=== PATIENT | male | born 1950 | race African-American/Black ===

== ENCOUNTER 2018-11-09 06:47 | Emergency (ER) | payer OTHER, BC ==
--- NOTE | 2018-11-09 07:09 | PDOC ---
History of Present Illness - General Stated Complaint: ABDOMINAL PAIN Time Seen by Provider: 11/09/18 07:07 - History of Present Illness Initial Comments: 11/09/18 07:12 Mr. Roman is a 68 yo male w/ pmh of HTN, prior CVA, s/p appendectomy and cholecystectomy who presents for evaluation of 2-3 day history of intense abdominal pain. Patient reports he had hiccupping several days ago which was relieved by nexium OTC however he stopped taking nexium after his hiccups resolved. He cannot localize his pain to anywhere specific and does not endorse any relation to food, activity, bathroom habits, etc. Denies other symptoms at this time. The patient denies chest pain, shortness of breath, headache and dizziness. Denies fever, chills, nausea, vomit, diarrhea and constipation. Denies dysuria, frequency, urgency and hematuria. Past History - Past Medical History Allergies/Adverse Reactions: Allergies Allergy/AdvReac Type Severity Reaction Status Date / Time No Known Allergies Allergy Verified 11/09/18 07:17 Home Medications: Ambulatory Orders Amlodipine Besylate [Norvasc -] 10 mg PO DAILY 11/09/18 Diclofenac Potassium 50 mg PO ASDIR 11/09/18 Fluticasone Furoate [Children's Flonase Sensimist] 5.9 ml NS ASDIR 11/09/18 Loratadine 10 mg PO ASDIR 11/09/18 Omeprazole 20 mg PO ASDIR 11/09/18 Oxybutynin Chloride [Ditropan -] 5 mg PO DAILY 11/09/18 Selenium 25 mcg PO ASDIR 11/09/18 Tamsulosin HCl [Flomax] 0.4 mg PO DAILY #7 cap.er.24h 11/09/18 Tramadol HCl 50 mg PO BID #4 tablet MDD 2 11/09/18 CVA: Yes HTN: Yes - Suicide/Smoking/Psychosocial Hx Smoking History: Current every day smoker Number of Cigarettes Smoked Daily: 20 'Breaking Loose' booklet given: 07/13/15 Hx Alcohol Use: No Drug/Substance Use Hx: No Review of Systems - Review of Systems Comments:: 11/09/18 07:14 GENERAL/CONSTITUTIONAL: No fever or chills. No weakness. HEAD, EYES, EARS, NOSE AND THROAT: No change in vision. No ear pain or discharge. No sore throat. CARDIOVASCULAR: No chest pain or shortness of breath RESPIRATORY: No cough, wheezing, or hemoptysis. GASTROINTESTINAL: +Abdominal pain as described. No nausea, vomiting, diarrhea or constipation. GENITOURINARY: No dysuria, frequency, or change in urination. MUSCULOSKELETAL: No joint or muscle swelling or pain. No neck or back pain. SKIN: No rash NEUROLOGIC: No headache, vertigo, loss of consciousness, or change in strength/ sensation. ENDOCRINE: No increased thirst. No abnormal weight change HEMATOLOGIC/LYMPHATIC: No anemia, easy bleeding, or history of blood clots. ALLERGIC/IMMUNOLOGIC: No hives or skin allergy. *Physical Exam - Physical Exam Comments: 11/09/18 07:14 GENERAL: Awake, alert, and fully oriented, in no acute distress HEAD: No signs of trauma, normocephalic, atraumatic EYES: PERRLA, EOMI, sclera anicteric, conjunctiva clear ENT: Auricles normal inspection, hearing grossly normal, nares patent, oropharynx clear without exudates. Moist mucosa NECK: Normal ROM, supple, no lymphadenopathy, JVD, or masses LUNGS: No distress, speaks full sentences, clear to auscultation bilaterally HEART: Regular rate and rhythm, normal S1 and S2, no murmurs, rubs or gallops, peripheral pulses normal and equal bilaterally. ABDOMEN: +Diffuse abdominal TTP. Patient guarding. Normoactive bowel sounds. No rebound. No masses. EXTREMITIES: Normal inspection, Normal range of motion, no edema. No clubbing or cyanosis. NEUROLOGICAL: Cranial nerves II through XII grossly intact. Normal speech, normal gait, no focal sensorimotor deficits SKIN: Warm, Dry, normal turgor, no rashes or lesions noted. ED Treatment Course - LABORATORY CBC & Chemistry Diagram: 11/09/18 08:10 11/09/18 08:10 Medical Decision Making - Medical Decision Making 11/09/18 10:12 Mr. Roman is a 68 yo male w/ pmh as described who presents for evaluation of diffuse abdominal pain. Patient evaluated using labs as well as CT abdomen/ pelvis using IV/Oral contrast. Patient noted to have partially obstructing mid right ureteral calculus with mild hydronephrosis, also heterogeneous pancreatic masses suspicious for malignancy. 11/09/18 11:[address] with patient - pancreatic mass known and followed by his physician at the [facility]. Patient pain improved after toradol. Discharging patient for outpatient treatment of kidney stone and urology follow-up. Flomax Rx sent to patient's pharmacy. Patient will contact urologist through [facility] after discharge. Laboratory Results - last 24 hr 11/09/18 11/09/18 11/09/18 08:10 08:10 08:10 WBC 12.6 H RBC 5.67 H Hgb 15.4 Hct 48.6 MCV 85.7 MCH 27.2 MCHC 31.7 L RDW 17.3 H Plt Count 248 D MPV 8.3 Absolute Neuts (auto) 9.8 H Neutrophils % 78.2 D Lymphocytes % 11.7 D Monocytes % 6.7 Eosinophils % 2.5 Basophils % 0.9 Nucleated RBC % 0 Platelet Comment No clumping noted Sodium 135 L Potassium 3.7 Chloride 104 Carbon Dioxide 28 Anion Gap 4 L BUN 12 Creatinine 1.1 Creat Clearance w eGFR > 60 Random Glucose 125 H Lactic Acid 1.3 Calcium 9.3 Total Bilirubin 0.3 AST 19 ALT 19 Alkaline Phosphatase 126 H Total Protein 8.6 H Albumin 4.4 Lipase 74 Urine Color Urine Appearance Urine pH Ur Specific [place] Urine Protein Urine Glucose (UA) Urine Ketones Urine Blood Urine Nitrite Urine Bilirubin Urine Urobilinogen Ur Leukocyte Esterase Urine WBC (Auto) Urine RBC (Auto) 11/09/18 10:34 WBC RBC Hgb Hct MCV MCH MCHC RDW Plt Count MPV Absolute Neuts (auto) Neutrophils % Lymphocytes % Monocytes % Eosinophils % Basophils % Nucleated RBC % Platelet Comment Sodium Potassium Chloride Carbon Dioxide Anion Gap BUN Creatinine Creat Clearance w eGFR Random Glucose Lactic Acid Calcium Total Bilirubin AST ALT Alkaline Phosphatase Total Protein Albumin Lipase Urine Color Colorless Urine Appearance Clear Urine pH 7.0 D Ur Specific [place] 1.028 Urine Protein Negative Urine Glucose (UA) Negative Urine Ketones Negative Urine Blood 1+ H Urine Nitrite Negative Urine Bilirubin Negative Urine Urobilinogen Negative Ur Leukocyte Esterase Negative Urine WBC (Auto) 2 Urine RBC (Auto) 2 *DC/Admit/Observation/Transfer Diagnosis at time of Disposition: Kidney stone - Discharge Dispostion Disposition: HOME Condition at time of disposition: Fair - Prescriptions Prescriptions: Tamsulosin HCl [Flomax] 0.4 mg PO DAILY #7 cap.er.24h - Referrals Referrals: Radha Wise MD [Primary Care Provider] - - Patient Instructions Printed Discharge Instructions: DI for Kidney Stones Additional Instructions: You were evaluated today in the emergency room for your pain and found to have a kidney stone. A proscription was sent to your pharmacy. Please take all medications as proscribed. No other concerning findings were found at this time. Please follow-up with urology as discussed. Return to ER if any fever, chills, increase in pain, or other concerning symptoms. - Post Discharge Activity
[2018-11-09 07:17] VITALS: BMI 24.0
[2018-11-09] MEDS ORDERED: SODIUM CHLORIDE 1,000 ML IV STA ×2 (07:30→10:21)
--- NOTE | 2018-11-09 07:30 | PDOC ---
Attending Attestation - HPI HPI: 11/09/18 09:23 The patient is a 68 year old male, with a significant PMH of hypertension, prior CVA, who presents to the emergency department with 2-3 days of generalized abdominal pain. The patient states he is unable to localize the abdominal pain and denies any exacerbating or remitting factors. The patient also notes he has had hiccups for several days for which he took OTC Nexium with relief of his hiccups. The patient denies chest pain, shortness of breath, headache and dizziness. Denies fever, chills, nausea, vomit, diarrhea and constipation. Denies dysuria, frequency, urgency and hematuria. Allergies: NKA Past surgical history: appendectomy and cholecystectomy Social history: No reported PCP: Dr Radha Wise Documentation prepared by Ed Carlos, acting as medical claims analyst for Narinder Azevedo MD. - Physicial Exam PE: 11/09/18 11:12 Vitals: Triage Vital signs reviewed General Appearance: no acute distress, well nourished well developed, Neck: Supple;No Nuchal rigidity Chest Wall: Nontender Cardiac: Regular rate and rhythm, no murmurs, no rubs, no gallops, Lungs: Clear to auscultation bilateral, good air movement bilaterally, Abdomen: (+) Diffuse abdominal pain. No rebound or guarding. Soft, nondistended , normal bowel sounds. Rectal: Exam deferred Extremities: Full range of motion to all extremities, no cyanosis, clubbing, or edema Skin: Warm and dry, no rashes or lesions, no petechiae Psych: normal mood, normal affect <Ed Carlos - Last Filed: 11/09/18 11:12> - Resident Resident Name: David Ricci - ED Attending Attestation I have performed the following: I have examined & evaluated the patient, The case was reviewed & discussed with the resident, I agree w/resident's findings & plan, Exceptions are as noted - Medical Decision Making 11/09/18 14:30 CT with evidence of right-sided kidney stone Status post Toradol patient feels much better Urinalysis clean labs notable for slightly elevated leukocytosis below suspicion for infected stone at this time Patient has urologist we'll discharge her on Aleve tramadol Flomax with urology follow-up Findings, need for follow-up and strict return instructions discussed with patient. <Narinder Azevedo - Last Filed: 11/09/18 14:30>
[2018-11-09] MEDS ORDERED: FAMOTIDINE 20 MG/50 ML IVPB 20 MG/50 ML MG IVPB ONE ×2 (07:31→07:55)
[2018-11-09] MEDS ORDERED: MAG HYDROX/AL HYDROX/SIMETH 30 ML UNIT-DOSE CUP PO ONE (07:31)
[2018-11-09] MEDS ORDERED: ACETAMINOPHEN 1000 MG/100 ML VIAL (NON FORMULARY) IVPB ONE (07:32)
[2018-11-09] MEDS ORDERED: ACETAMINOPHEN INJECTION 100 ML IVPB ONE (07:54)
[2018-11-09] MEDS ORDERED: MAG HYDROX/AL HYDROX/SIMETH 30 ML UNIT-DOSE CUP ONE ×2 (07:54→07:55)
[2018-11-09 08:40] LABS: ALBUMIN 4.4 g/dl (3.4-5.0); ALK PHOS 126 U/L (45-117); ANION GAP 4 MMOL/L (8-16); BILIRUBIN,TOTAL 0.3 mg/dL (0.2-1); BLOOD UREA NITROGEN 12 mg/dL (7-18); CALCIUM 9.3 mg/dL (8.5-10.1); CHLORIDE 104 mmol/L (98-107); CO2 28 mmol/L (21-32); CREATININE 1.1 mg/dL (0.55-1.3); GLUCOSE,RANDOM 125 mg/dL (74-106); POTASSIUM 3.7 mmol/L (3.5-5.1); SGOT/AST 19 U/L (15-37); SGPT/ALT 19 U/L (13-61); SODIUM 135 mmol/L (136-145); TOT PROT 8.6 g/dl (6.4-8.2)
[2018-11-09 08:49] LABS: BASO % 0.9 % (0-2.0); EOS % 2.5 % (0-4.5); HEMATOCRIT 48.6 % (35.4-49); HEMOGLOBIN 15.4 GM/dL (11.7-16.9); LYMPH % 11.7 % (8-40); MCH 27.2 pg (25.7-33.7); MCHC 31.7 g/dl (32.0-35.9); MEAN CELL VOLUME 85.7 fl (80-96); MEAN PLT VOLUME 8.3 fl (7.5-11.1); MONO % 6.7 % (3.8-10.2); NEUT % 78.2 % (42.8-82.8); PLATELET COUNT 248 K/MM3 (134-434); RBC 5.67 M/mm3 (4.00-5.60); RDW 17.3 % (11.9-15.9); WHITE BLOOD COUNT 12.6 K/mm3 (4.0-10.0)
[2018-11-09 09:47] LABS: LIPASE 74 U/L (73-393)
[2018-11-09] MEDS ORDERED: ONDANSETRON 4 MG/2 ML VIAL IVPUSH ONE (09:50)
[2018-11-09] MEDS ORDERED: morphine CARPU-JECT 4 MG/1 ML DISP.SYRIN IVPUSH ONE (09:50)
[2018-11-09] MEDS ORDERED: ONDANSETRON 4 MG/2 ML VIAL ONE (09:54)
[2018-11-09] MEDS ORDERED: morphine SULFATE 4 MG/ML VIAL ONE (09:54)
[2018-11-09] MEDS ORDERED: KETOROLAC TROMETHAMINE 30 MG/1 ML VIAL IVPUSH ONE (10:22)
[2018-11-09] MEDS ORDERED: KETOROLAC TROMETHAMINE 30 MG/1 ML VIAL ONE (10:32)
[2018-11-09 11:22] LABS: URINE APPEARANCE CLEAR; URINE BILIRUBIN NEGATIVE (<2.0 mg/dL); URINE COLOR COLORLESS; URINE GLUCOSE (UA) NEGATIVE (NEGATIVE); URINE KETONE NEGATIVE (NEGATIVE); URINE LEUK ESTERASE NEGATIVE (NEGATIVE); URINE NITRITE NEGATIVE (NEGATIVE); URINE PROTEIN NEGATIVE (NEGATIVE); URINE UROBILINOGEN NEGATIVE mg/dL (0.2-1.0)
[2018-11-09 12:17] VITALS: BP 158/85; PULSE 78; TEMP 97.9
== END 2018-11-09 12:17 | disposition home or self-care (01) ==
LOC: JER 06:47
PROC: 3E0337Z Introduction of Electrolytic and Water Balance Substance into Peripheral Vein, Percutaneous Approach (ICD-10-PCS; principal; 2018-11-09)
PROC: 3E033GC Introduction of Other Therapeutic Substance into Peripheral Vein, Percutaneous Approach (ICD-10-PCS; 2018-11-09)
PROC: 3E033NZ Introduction of Analgesics, Hypnotics, Sedatives into Peripheral Vein, Percutaneous Approach (ICD-10-PCS; 2018-11-09)
PROC: 3E033NZ Introduction of Analgesics, Hypnotics, Sedatives into Peripheral Vein, Percutaneous Approach (ICD-10-PCS; 2018-11-09)
PROC: 3E033GC Introduction of Other Therapeutic Substance into Peripheral Vein, Percutaneous Approach (ICD-10-PCS; 2018-11-09)
PROC: 3E0333Z Introduction of Anti-inflammatory into Peripheral Vein, Percutaneous Approach (ICD-10-PCS; 2018-11-09)
DX: N20.0 Calculus of kidney (principal); I10 Essential (primary) hypertension; Z86.73 Personal history of transient ischemic attack (TIA), and cerebral infarction without residual deficits
CPT/HCPCS: 36415; 74177-TC; 80053; 81003; 81015; 83605; 83690; 85025; 87086; 99282-25; J0131; J7030; Q9967

== ENCOUNTER 2018-11-11 15:29 | Inpatient (IN) | payer OTHER, BC ==
--- NOTE | 2018-11-11 15:55 | PDOC ---
History of Present Illness - General Chief Complaint: Altered Mental Status Stated Complaint: KIDNEY PAIN Time Seen by Provider: 11/11/18 15:54 History Source: Patient - History of Present Illness Initial Comments: 11/11/18 17:03 The patient is 68 year old male with a PMH of HTN, remote h/o CVA (20+ years previous w/no residual deficits), pancreatic mass (s/p biopsy @ [facility], no known malignancy) presents to our ED c/o fever, abdominal pain. Patient's @ bedside assists in history. Patient states he was evaluated yesterday in our ED for abdominal pain and CT showed kidney stone. Was discharged home with supportive care. Pain worsened overnight and today. Patient's noticed he felt warm to touch and decided to come to the ED for further evaluation. Patient states the pain is diffuse, R>L, 10/10, "sharp," radiates to his R flank. Minimal relief from Tramadol which was prescribed from ED evaluation yesterday. Is tolerating PO intake, however notes decreased appetite 2/2 to symptoms. Last BM was prior to presentation and was normal. Patient's notes that patient couldn't remember his birthdate @ triage and was confused @ home looking for his hat while it was on his head. At baseline patient is alert , oriented x3. 10 ROS was negative including no chest pain/shortness of breath/abdominal pain/ nausea/vomiting/diarrhea/constipation. NKDA Surgical: appendectomy, cholecystectomy Social: lifetime non-smoker PMD: [facility] Radha [facility] and [facility] As per EMR, patient was evaluated in our ED on 11/[address] w/IV contrast showed 5x7 mm R mid ureter calculus, partial obstruction, mild R sided hydronephrosis, heterogenous pancreatic mass w/duct dilatation. Cr stable @ 1.1 , UA showed 1+ blood c/w nephrolithiasis, no LE, normal WBC. Past History - Past Medical History Allergies/Adverse Reactions: Allergies Allergy/AdvReac Type Severity Reaction Status Date / Time No Known Allergies Allergy Verified 11/09/18 07:17 Home Medications: Ambulatory Orders Amlodipine Besylate [Norvasc -] 10 mg PO DAILY 11/09/18 Diclofenac Potassium 50 mg PO ASDIR 11/09/18 Fluticasone Furoate [Children's Flonase Sensimist] 5.9 ml NS ASDIR 11/09/18 Loratadine 10 mg PO ASDIR 11/09/18 Omeprazole 20 mg PO ASDIR 11/09/18 Oxybutynin Chloride [Ditropan -] 5 mg PO DAILY 11/09/18 Selenium 25 mcg PO ASDIR 11/09/18 Tamsulosin HCl [Flomax] 0.4 mg PO DAILY #7 cap.er.24h 11/09/18 Tramadol HCl 50 mg PO BID #4 tablet MDD 2 11/09/18 CVA: Yes COPD: No HTN: Yes - Immunization History Immunization Up to Date: Yes - Suicide/Smoking/Psychosocial Hx Smoking History: Current every day smoker Have you smoked in the past 12 months: No Number of Cigarettes Smoked Daily: 10 Information on smoking cessation initiated: No 'Breaking Loose' booklet given: 07/13/15 Hx Alcohol Use: No Drug/Substance Use Hx: No Review of Systems - Review of Systems Constitutional: Yes: Chills, Fever HEENTM: No: Recent change in vision Respiratory: No: Cough, Shortness of Breath Cardiac (ROS): No: Chest Pain, Lightheadedness, Palpitations, Syncope ABD/GI: Yes: Abdominal cramping. No: Constipated, Diarrhea, Nausea, Vomiting : No: Burning, Dysuria *Physical Exam - Vital Signs Last Vital Signs Temp Pulse Resp BP Pulse Ox 100.2 F H 147 H 20 144/95 98 11/11/18 15:47 11/11/18 15:47 11/11/18 15:47 11/11/18 15:47 11/11/18 15:47 - Physical Exam General Appearance: Yes: Nourished, Appropriately Dressed HEENT: positive: Normal Voice, Hearing Grossly Normal Neck: positive: Trachea midline, Supple Respiratory/Chest: positive: Lungs Clear, Normal Breath Sounds Cardiovascular: positive: S1, S2, Tachycardia Vascular Pulses: Dorsalis-Pedis (R): 2+, Doralis-Pedis (L): 2+ Gastrointestinal/Abdominal: positive: Soft, Other (Mild RUQ TTP, (+) bowel sounds, no peritoneal signs) Male Genitalia: positive: CVAT (R side) Extremity: positive: Normal Capillary Refill, Normal Inspection Integumentary: positive: Normal Color, Dry, Warm Neurologic: positive: Fully Oriented, Alert Moderate Sedation - Procedure Monitoring Vital Signs: Procedure Monitoring Vital Signs Temperature 100.2 F H 11/11/18 15:47 Pulse Rate 147 H 11/11/18 15:47 Respiratory Rate 20 11/11/18 15:47 Blood Pressure 144/95 11/11/18 15:47 O2 Sat by Pulse Oximetry (%) 98 11/11/18 15:47 ED Treatment Course - LABORATORY CBC & Chemistry Diagram: 11/12/18 09:30 11/12/18 09:30 Medical Decision Making - Medical Decision Making 11/11/18 17:08 68 year old male with abdominal pain, H/o 5x7 R sided obstructing stone yesterday. Febrile (105) and Tachycardic (140's) @ triage. Repeat VS @ bedside : Temp 104.2 (Rectal), HR 126, RR 21, SpO2 97% on RA. A&O x3. Frontal diagnosis : sepsis 2/2 to obstructing stone, cystitis/pyelonephritis, ARF. Also consider pancreatic malignancy. ED Adult Sepsis initiated. Tylenol for fever, Morphine for pain. Patient likely needs IV antibiotics. Head CT to r/o CVA/TIA, though patient's confusion likely 2/2 to SiSx. Close monitoring. 11/11/18 17:15 Case d/w Dr. Banegas (ID) Imipenem broad spectrum coverage. 11/11/18 17:26 CBC shows Leukocytosis 17.3 (12 on 11/09) 11/11/18 17:[address] Gilmore (covering for patient's PMD Dr. Radha Wise), phone directly to voicemail Paged Dr. Stone - as per answering service covering for Dr. Gilmore; requests voicemail for Dr. Gilmore prior to accepting admission. Voicemail for Dr. Gilmore. 11/11/18 17:35 CMP hemolyzed 11/11/18 17:[address] Stone, accepts patient for admission; requests pancreatic enzymes, update on Head CT 11/11/18 18:[address] negative Patient reassessed @ bedside, pain improved w/Morphine, remains A&O x4 Tachycardia Improving (120's) Repeat BP 102/74 11/11/18 18:38 Lactic Acid 2.8 Cr 2.0 (Cr yesterday 1.1) Lipase low (36), Amylase wnL Sepsis dose IV fluids hanging (2327 mL as per patient weight, patient given 1 L bolus and additional 1327 mL) 11/11/18 19:43 Repeat BP 101/75 11/11/18 20:32 Case d/w Dr. Deshpande (urology) Will evaluate patient in the a.m. for possible stenting tomorrow Patient NPO @ midnight Reassessed @ bedside VS: SpO2 96%, HR 85, BP 95/75 Will give additional 1 L; withhold any additional Morphine for pain given patient's hypotension Will contact ICU for possible unit admission Patient and patient's counseled on plan of care including possible OR tomorrow 11/11/18 20:34 Case d/w ICU @ bedside. Agrees with floor admission; will contact if worsening VS. 11/11/18 20:36 Repeat BP 100/74 Tylenol for pain 11/11/18 20:54 Patient transferred to inpatient medicine floor Clinical Impression: Nephrolithiasis w/superimposed infection 2/2 to obstructing stone *DC/Admit/Observation/Transfer Diagnosis at time of Disposition: Fever, Nephrolithiasis - Discharge Dispostion Condition at time of disposition: Fair Decision to Admit order: Yes - Referrals - Patient Instructions - Post Discharge Activity
[2018-11-11] MEDS ORDERED: ACETAMINOPHEN 1000 MG/100 ML VIAL (NON FORMULARY) IVPB ONE ×2 (15:56→22:09)
[2018-11-11] MEDS ORDERED: ACETAMINOPHEN INJECTION 100 ML IVPB ONE ×2 (16:17→22:17)
[2018-11-11] MEDS ORDERED: SODIUM CHLORIDE 0.9% 500 ML INFUS.BAG IV ONE ×3 (16:26→22:09)
--- NOTE | 2018-11-11 16:39 | PDOC ---
Attending Attestation - HPI HPI: 11/11/18 16:40 The patient is a 68 year old male with a significant past medical history of hypertension and CVA who presents to the emergency department altered mental since earlier today. The patient was seen in the ED 1 day ago for abdominal pain by which he was diagnosed with a right sided stone and sent home with medication. The patient reports worsened pain today and a fever. As per family at bedside, the patient did not know what article of clothing he had and he did not know his birthday. Denies any other symptoms or complaints. Documentation prepared by Bernadette Villa, acting as medical administrative specialist for Nohemy Hung MD - Physicial Exam PE: 11/11/18 17:01 GENERAL:(+)confused. The patient is in no acute distress. HEAD: Normal with no signs of trauma. EYES: PERRLA, EOMI, sclera anicteric, conjunctiva clear. ENT: Ears normal, nares patent, oropharynx clear without exudates. Moist mucous membranes. NECK: Normal range of motion, supple without lymphadenopathy, JVD, or masses. LUNGS: Breath sounds equal, clear to auscultation bilaterally. No wheezes, and no crackles. HEART:(+)tachy. Regular rhythm, normal S1 and S2 without murmur, rub or gallop. ABDOMEN:(+)right sided abdominal tenderness. Soft, nondistended. normoactive bowel sounds. No guarding, no rebound. No masses palpable. EXTREMITIES: Normal range of motion, no edema. No clubbing or cyanosis. No erythema, or tenderness. NEUROLOGICAL: Cranial nerves II through XII grossly intact. Normal speech. No focal neurological deficits. MUSCULOSKELETAL: Back non-tender to palpation, no CVA tenderness SKIN: Warm, Dry, normal turgor, no rashes or lesions noted. <Bernadette Villa - Last Filed: 11/11/18 17:01> - Resident Resident Name: Jes Jama - ED Attending Attestation I have performed the following: I have examined & evaluated the patient, The case was reviewed & discussed with the resident, I agree w/resident's findings & plan, Exceptions are as noted - Medical Decision Making 11/11/18 16:39 EKG - NSR rate of 132 bpm, axis nml, no st elevations or depressions, intervals nml, t waves upright 11/11/18 17:05 Rectal temp 105.6 Sepsis order set initiated Fluids ordered per sepsis order set Labs pending UA pending Will admit Will consult Dr Banegas 11/11/18 17:[address] Banegas He requests imipenam call placed to Dr. Deirdre harris His phone is off Will contact the service again Will also consult 11/11/18 17:22 Laboratory Tests 11/09/18 11/11/18 08:10 16:30 WBC 12.6 H 17.3 H Hgb 15.4 15.3 Hct 48.6 43.9 Plt Count 248 D 156 D 11/11/18 18:38 Laboratory Tests 11/11/18 16:30 Lactic Acid 2.8 H* 11/11/18 19:52 Laboratory Tests 11/09/18 11/11/18 11/11/18 08:10 16:30 17:56 Sodium 135 L Cancelled 138 Potassium 3.7 4.0 Chloride 104 106 Carbon Dioxide 28 20 L Anion Gap 12 BUN 12 28 H Creatinine 1.1 Cancelled 2.0 H Random Glucose 125 H 147 H Creatine Kinase 231 Troponin I < 0.02 Total Amylase 63 Lipase 36 L Dany garcia Case reviewed with Dr Dany Ambriz He will be taking this patient to the OR tomorrow Pt briefly became hypotensive Receiving sepsis bolus Call placed to ICU They have evaluated this patient At this time, he is not a candidate for ICU at this time Clinical impression: OBSTRUCTING STONE UTI <Nohemy Hung - Last Filed: 11/11/18 21:34>
[2018-11-11 17:12] LABS: BASO % 0.3 % (0-2.0); EOS % 0.1 % (0-4.5); HEMATOCRIT 43.9 % (35.4-49); HEMOGLOBIN 15.3 GM/dL (11.7-16.9); LYMPH % 2.2 % (8-40); MCH 29.2 pg (25.7-33.7); MCHC 34.8 g/dl (32.0-35.9); MEAN PLT VOLUME 8.8 fl (7.5-11.1); MONO % 4.2 % (3.8-10.2); NEUT % 93.2 % (42.8-82.8); PLATELET COUNT 156 K/MM3 (134-434); RBC 5.23 M/mm3 (4.00-5.60); RDW 17.3 % (11.9-15.9); WHITE BLOOD COUNT 17.3 K/mm3 (4.0-10.0)
[2018-11-11] MEDS ORDERED: IMIPENEM/CILASTATIN SODIUM 500 MG in SODIUM CHLORIDE 100 ML IVPB ONE (17:16)
[2018-11-11 17:34] LABS: URINE APPEARANCE CLOUDY; URINE BILIRUBIN NEGATIVE (<2.0 mg/dL); URINE COLOR YELLOW; URINE GLUCOSE (UA) NEGATIVE (NEGATIVE); URINE KETONE 2+ (NEGATIVE); URINE LEUK ESTERASE TRACE (NEGATIVE); URINE NITRITE NEGATIVE (NEGATIVE); URINE PROTEIN 2+ (NEGATIVE)
[2018-11-11 17:39] LABS: EPI CELLS RARE /HPF (FEW); URINE BACTERIA RARE /hpf (NONE SEEN); URINE MUCUS RARE
[2018-11-11 17:57] LABS: INR 1.38 (0.83-1.09); PROTHROMBIN TIME (PATIENT) 16.3 SEC (9.7-13.0)
[2018-11-11 18:42] LABS: PLATELET ESTIMATE ADEQUATE
[2018-11-11 19:35] LABS: ALBUMIN 2.9 g/dl (3.4-5.0); ALK PHOS 95 U/L (45-117); AMYLASE 63 U/L (25-115); ANION GAP 12 MMOL/L (8-16); BILIRUBIN,TOTAL 0.9 mg/dL (0.2-1); BLOOD UREA NITROGEN 28 mg/dL (7-18); CALCIUM 8.1 mg/dL (8.5-10.1); CHLORIDE 106 mmol/L (98-107); CO2 20 mmol/L (21-32); GLUCOSE,RANDOM 147 mg/dL (74-106); LIPASE 36 U/L (73-393); SGOT/AST 45 U/L (15-37); SGPT/ALT 28 U/L (13-61); SODIUM 138 mmol/L (136-145); TOT PROT 6.1 g/dl (6.4-8.2)
[2018-11-12] MEDS ORDERED: ACETAMINOPHEN 325 MG TABLET (FP) PO PRN (01:36)
[2018-11-12] MEDS: DEXTROSE 5%-0.45% SALINE 1,000 ML IV SCH (01:38)
[2018-11-12] MEDS: MORPHINE SULFATE 2 MG/ML VIAL IVPUSH PRN (01:39)
[2018-11-12] MEDS: IMIPENEM/CILASTATIN SODIUM 500 MG in SODIUM CHLORIDE 100 ML IVPB SCH ×3 (02:43→17:51)
--- NOTE | 2018-11-12 08:41 | EKG ---
Test Reason : Blood Pressure : / mmHG Vent. Rate : 132 BPM Atrial Rate : 132 BPM P-R Int : 168 ms QRS Dur : 092 ms QT Int : 282 ms P-R-T Axes : 065 024 061 degrees QTc Int : 417 ms SINUS TACHYCARDIA OTHERWISE NORMAL ECG WHEN COMPARED WITH ECG OF 13-JUL-2015 17:38, VENT. RATE HAS INCREASED BY 83 BPM Confirmed by NORI SPIVEY MD ([id number]) on 11/12/2018 8:40:51 AM Referred By: Confirmed By:NORI SPIVEY MD
--- NOTE | 2018-11-12 09:24 | PN ---
Progress Note, Physician Chief Complaint: pt lyin bed,pt feels better afebrile Vitals stable Pt is on IV fluid,antibiotics and pain meds ID and urology f/u Possible stent placement today CT scan of abdomen report shows 5x7 mm partially obstructing rt ureteral stone with mild hydronephrosid ,heterogenous mass in the body of pancreas with dialatation of pancreatic duct distal to mass - Current Medication List Current Medications: Active Medications Acetaminophen (Tylenol -) 650 mg PO Q6H PRN PRN Reason: FEVER Imipenem/Cilastatin Sodium 500 (mg/ Sodium Chloride) 100 mls @ 100 mls/hr IVPB Q8H-IV LOLIS; Protocol Last Admin: 11/12/18 02:43 Dose: 100 mls/hr Dextrose/Sodium Chloride (D5-1/2ns -) 1,000 mls @ 50 mls/hr IV ASDIR LOLIS Last Admin: 11/12/18 01:38 Dose: 50 mls/hr Morphine Sulfate (Morphine Sulfate) 2 mg IVPUSH Q6H PRN PRN Reason: PAIN LEVEL 5-8 Last Admin: 11/12/18 01:39 Dose: 2 mg - Objective Vital Signs: Vital Signs Temperature 99.7 F H 11/12/18 06:00 Pulse Rate 87 11/12/18 06:00 Respiratory Rate 20 11/12/18 06:00 Blood Pressure 108/69 11/12/18 06:00 O2 Sat by Pulse Oximetry (%) 98 11/12/18 00:56 Constitutional: Yes: No Distress Eyes: Yes: Conjunctiva Clear HENT: Yes: Atraumatic Neck: Yes: Supple, Trachea Midline Cardiovascular: Yes: Regular Rate and Rhythm Respiratory: Yes: Regular, CTA Bilaterally Gastrointestinal: Yes: Normal Bowel Sounds, Soft Genitourinary: Yes: Other (no cva tenderness) Musculoskeletal: Yes: WNL Extremities: Yes: WNL Edema: No Peripheral Pulses WNL: Yes Neurological: Yes: WNL, Alert ...Motor Strength: WNL Psychiatric: Yes: WNL, Alert Labs: CBC, BMP 11/11/18 16:30 11/11/18 17:56 INR, PTT INR 1.38 (0.83-1.09) H 11/11/18 16:30 - ....Imaging Chest X-ray: Report Reviewed Cat Scan: Report Reviewed EKG: Report Reviewed Assessment/Plan Rt ureteric stone ,fever,UTI Leucocytosis Pancreatic mass HTN PLAN continue antibiotics,IV fluid and pain MEDS UROLOGY f/u ID f/u Will monitor CBC and BUN and CREatinine For possible Stent Placement today
[2018-11-12 09:54] LABS: BASO % 0.2 % (0-2.0); EOS % 0.2 % (0-4.5); HEMATOCRIT 37.9 % (35.4-49); HEMOGLOBIN 13.2 GM/dL (11.7-16.9); LYMPH % 4.8 % (8-40); MCH 29.1 pg (25.7-33.7); MCHC 34.7 g/dl (32.0-35.9); MEAN CELL VOLUME 83.9 fl (80-96); MEAN PLT VOLUME 8.9 fl (7.5-11.1); MONO % 5.6 % (3.8-10.2); NEUT % 89.2 % (42.8-82.8); PLATELET COUNT 142 K/MM3 (134-434); RBC 4.52 M/mm3 (4.00-5.60); WHITE BLOOD COUNT 14.6 K/mm3 (4.0-10.0)
[2018-11-12] MEDS ORDERED: PT OWN MED DRAWER 7, Y5N ONE ×2 (09:55→17:43)
[2018-11-12 10:14] LABS: ALBUMIN 2.7 g/dl (3.4-5.0); ALK PHOS 90 U/L (45-117); ANION GAP 8 MMOL/L (8-16); BILIRUBIN,TOTAL 1.1 mg/dL (0.2-1); BLOOD UREA NITROGEN 20 mg/dL (7-18); CALCIUM 7.9 mg/dL (8.5-10.1); CHLORIDE 112 mmol/L (98-107); CO2 22 mmol/L (21-32); CREATININE 1.6 mg/dL (0.55-1.3); GLUCOSE,RANDOM 130 mg/dL (74-106); POTASSIUM 3.8 mmol/L (3.5-5.1); SGOT/AST 39 U/L (15-37); SGPT/ALT 28 U/L (13-61); SODIUM 142 mmol/L (136-145); TOT PROT 5.6 g/dl (6.4-8.2)
--- NOTE | 2018-11-12 13:14 | CON.ID ---
Consult Consult Specialty:: infectious diseases Referred by:: Reason for Consultation:: sepsis,fever - History of Present Illness Chief Complaint: abd pain History of Present Illness: 68 year old male with a PMH of HTN, remote h/o CVA (20+ years previous w/no residual deficits), pancreatic mass (s/p biopsy @ [place], no known malignancy) presents to our ED c/o fever, abdominal pain. Patient's @ bedside assists in history. Patient states he was evaluated yesterday in our ED for abdominal pain and CT showed kidney stone. Was discharged home with supportive care. Pain worsened overnight and today. Patient's noticed he felt warm to touch and decided to come to the ED for further evaluation. Patient states the pain is diffuse, R>L, 10/10, "sharp," radiates to his R flank. Minimal relief from Tramadol which was prescribed from ED evaluation yesterday. Is tolerating PO intake, however notes decreased appetite 2/2 to symptoms. Last BM was prior to presentation and was normal. Patient's notes that patient couldn't remember his birthdate @ triage and was confused @ home looking for his hat while it was on his head. At baseline patient is alert, oriented x3. plan is to be seen by the urology - History Source History Provided By: Patient, Family Member Limitations to Obtaining History: No Limitations - Alcohol/Substance Use Hx Alcohol Use: No - Smoking History Smoking history: Current every day smoker Have you smoked in the past 12 months: No Aproximately how many cigarettes per day: 10 Home Medications - Allergies Allergies/Adverse Reactions: Allergies Allergy/AdvReac Type Severity Reaction Status Date / Time No Known Allergies Allergy Verified 11/09/18 07:17 - Home Medications Home Medications: Ambulatory Orders Amlodipine Besylate [Norvasc -] 10 mg PO DAILY 11/09/18 Diclofenac Potassium 50 mg PO ASDIR 11/09/18 Fluticasone Furoate [Children's Flonase Sensimist] 5.9 ml NS ASDIR 11/09/18 Loratadine 10 mg PO ASDIR 11/09/18 Omeprazole 20 mg PO ASDIR 11/09/18 Oxybutynin Chloride [Ditropan -] 5 mg PO DAILY 11/09/18 Selenium 25 mcg PO ASDIR 11/09/18 Tamsulosin HCl [Flomax] 0.4 mg PO DAILY #7 cap.er.24h 11/09/18 Tramadol HCl 50 mg PO BID #4 tablet MDD 2 11/09/18 Review of Systems - Review of Systems Constitutional: reports: Fever, Weakness Eyes: reports: No Symptoms HENT: reports: No Symptoms Neck: reports: No Symptoms Cardiovascular: reports: No Symptoms Respiratory: reports: No Symptoms Gastrointestinal: reports: No Symptoms Genitourinary: reports: Dysuria, Flank Pain, Pain Musculoskeletal: reports: No Symptoms Integumentary: reports: No Symptoms Neurological: reports: No Symptoms Endocrine: reports: No Symptoms Hematology/Lymphatic: reports: No Symptoms Psychiatric: reports: No Symptoms Physical Exam Vital Signs: Vital Signs Temperature 97.9 F 11/12/18 10:00 Pulse Rate 88 11/12/18 10:00 Respiratory Rate 18 11/12/18 10:00 Blood Pressure 133/55 L 11/12/18 10:00 O2 Sat by Pulse Oximetry (%) 98 11/12/18 00:56 Constitutional: Yes: Well Nourished, Calm, Mild Distress Eyes: Yes: Conjunctiva Clear Neck: Yes: Supple, Trachea Midline Cardiovascular: Yes: Regular Rate and Rhythm Respiratory: Yes: Regular, CTA Bilaterally Gastrointestinal: Yes: Normal Bowel Sounds, Soft Renal/: Yes: CVA Tenderness - Right, Other Musculoskeletal: Yes: WNL Extremities: Yes: WNL Neurological: Yes: Alert, Oriented Psychiatric: Yes: Alert, Oriented Labs: CBC, BMP 11/12/18 09:30 11/12/18 09:30 Imaging - Results Chest X-ray: Report Reviewed, Image Reviewed X-ray: Report Reviewed, Image Reviewed Cat Scan: Report Reviewed, Image Reviewed Assessment/Plan uti renal stone gm positive bactermia pancreatic mass rt pyelo plan will start patient on zosyn await for all cx reports urology to see the patinet also gi patient has ahd biopsy of the mass in [place] which seems it was negative
--- NOTE | 2018-11-12 13:57 | HP ---
DATE OF ADMISSION: 11/11/2018 The patient is a 68-year-old male with a past medical history of hypertension, history of CVA in the past, with no residual deficit, and pancreatic mass, was sent to emergency room with complaints of fever, abdominal pain. As per the patient's , the patient was seen the day before yesterday in the emergency room for abdominal pain, and the patient had a CT of the abdomen. It showed a small kidney stone, and the lab work were fine, so patient discharged home on Flomax and home medication and recommended to follow. After the discharge, patient continued to complain of pain and patient's noticed he feels warm to touch and he behaved a little abnormal, so she brought the patient to the emergency room for further evaluation. Patient states the pain is diffuse in the abdomen, right side more than the left side, 10/10, with minimal relief from tramadol, which was prescribed from the emergency room. Patient tolerating p.o. intake; however, he noticed a lack of appetite for a few days. Bowel movements were normal. No chest pain, no headache, no palpitation. No nausea, no vomiting, no diarrhea. SURGICAL HISTORY: Nothing significant. No known drug allergy. MEDICATION: Patient is on amlodipine 10 mg daily, diclofenac sodium, loratadine 10 mg, omeprazole 20 mg, Ditropan 5 mg daily, Flomax 0.4 mg p.o. daily, and tramadol 50 mg p.o. b.i.d. PAST MEDICAL HISTORY: History of CVA, hypertension, and pancreatic mass (as per the patient, he had a biopsy done at [facility] 4 months ago and was told the mass was benign, and he is following in [facility]). PERSONAL HISTORY: Every-day smoker. No history of alcohol. In the emergency room, temperature was 100.2, pulse 147, respiration 20, blood pressure 144/95, saturation 98. Regarding the labs, CBC WBC 17.3, on November 09, the WBC was 12.6, and hemoglobin 15.3, hematocrit 43.9, platelets 156. Comprehensive panel: Sodium 138, potassium 4, chloride 106, bicarbonate 20, BUN 28, creatinine 2. On October 31, the BUN was 12 and creatinine 1.1. Blood sugar 147, lactic acid was 2.8, neutrophils 93.2, PT was 16.3, INR 1.38, PTT 25, AST 45, ALT 28, alkaline phosphatase 95. Urine shows protein 2+, ketones 2+, blood 2+, leukocyte esterase trace. Troponin less than 0.02. Total amylase 63, lipase 36. Influenza A and B negative. Urine and blood culture pending. Chest x-ray: Weak inspiratory effort. No acute pathology. Head CT, preliminary: Normal. Chest x-ray: No acute abnormality. EKG shows sinus tachycardia, 132. When compared with the ECG of July 2015, ventricular rate has increased. In the emergency room, the case was discussed with Infectious Disease, recommended to start imipenem because of the fever, tachycardia, and elevated lactate level. Case discussed with Urology, planning to do stent placement after he saw the patient, so patient kept n.p.o. Patient admitted in the floor with admitting diagnosis of kidney stone with urinary infection and rule out sepsis. Patient was given imipenem, Tylenol, IV fluid, and pain medication in the emergency room. Patient admitted in the floor. ADMITTING DIAGNOSIS: Urinary tract infection and kidney stone. PLAN: Continue antibiotics. ID followup, urology followup. Continue home medications. Continue IV fluid. Monitor CBC. Monitor lactate level. Patient stable on the floor. Cynthia [id number]
--- NOTE | 2018-11-12 16:57 | CON.GU ---
Consult Consult Specialty:: urology Reason for Consultation:: uti/right obstructing ureteral stone with acute renal insufficiency - History of Present Illness Chief Complaint: right colic and fever to 104 - History Source History Provided By: Patient Limitations to Obtaining History: No Limitations - Alcohol/Substance Use Hx Alcohol Use: No - Smoking History Smoking history: Current every day smoker Have you smoked in the past 12 months: No Aproximately how many cigarettes per day: 10 Home Medications - Allergies Allergies/Adverse Reactions: Allergies Allergy/AdvReac Type Severity Reaction Status Date / Time No Known Allergies Allergy Verified 11/09/18 07:17 - Home Medications Home Medications: Ambulatory Orders Amlodipine Besylate [Norvasc -] 10 mg PO DAILY 11/09/18 Diclofenac Potassium 50 mg PO ASDIR 11/09/18 Fluticasone Furoate [Children's Flonase Sensimist] 5.9 ml NS ASDIR 11/09/18 Loratadine 10 mg PO ASDIR 11/09/18 Omeprazole 20 mg PO ASDIR 11/09/18 Oxybutynin Chloride [Ditropan -] 5 mg PO DAILY 11/09/18 Selenium 25 mcg PO ASDIR 11/09/18 Tamsulosin HCl [Flomax] 0.4 mg PO DAILY #7 cap.er.24h 11/09/18 Tramadol HCl 50 mg PO BID #4 tablet MDD 2 11/09/18 Physical Exam- Vital Signs: Vital Signs Temperature 99.9 F H 11/12/18 15:26 Pulse Rate 105 H 11/12/18 15:26 Respiratory Rate 20 11/12/18 15:26 Blood Pressure 116/78 11/12/18 15:26 O2 Sat by Pulse Oximetry (%) 98 11/12/18 09:00 Constitutional: Yes: Well Nourished, No Distress, Calm Eyes: Yes: WNL, Conjunctiva Clear, EOM Intact HENT: Yes: WNL, Atraumatic, Normocephalic Neck: Yes: WNL, Supple, Trachea Midline Cardiovascular: Yes: WNL, Regular Rate and Rhythm Respiratory: Yes: WNL, Regular Gastrointestinal: Yes: WNL, Soft Renal/: Yes: CVA Tenderness - Right Kidneys: Yes: FLank Pain Right Pelvis: Yes: Bladder Non Palpable Testicles: Yes: WNL Scrotum: Yes: WNL Penis: Yes: WNL Prostate Exam: Yes: Asymmetrical, Swollen Musculoskeletal: Yes: Back Pain Extremities: Yes: WNL Labs: CBC, BMP 11/12/18 09:30 11/12/18 09:30 Imaging - Results Cat Scan: Report Reviewed Assessment/Plan imp uti with obstructing right ureteral stone acute renal insufficiency plan continue antibiotics cystoscopy and stent placement in AM 25 minutes spent with patient
[2018-11-13] MEDS: IMIPENEM/CILASTATIN SODIUM 500 MG in SODIUM CHLORIDE 100 ML IVPB SCH ×2 (01:41→09:13)
[2018-11-13] MEDS: DEXTROSE 5%-0.45% SALINE 1,000 ML IV SCH ×2 (01:42→09:13)
[2018-11-13] MEDS: MORPHINE SULFATE 2 MG/ML VIAL IVPUSH PRN (06:25)
[2018-11-13 07:36] LABS: BASO % 0.2 % (0-2.0); EOS % 0.5 % (0-4.5); HEMATOCRIT 40.1 % (35.4-49); HEMOGLOBIN 12.8 GM/dL (11.7-16.9); LYMPH % 10.2 % (8-40); MCH 27.1 pg (25.7-33.7); MCHC 31.9 g/dl (32.0-35.9); MEAN CELL VOLUME 84.9 fl (80-96); MEAN PLT VOLUME 8.6 fl (7.5-11.1); MONO % 10.7 % (3.8-10.2); NEUT % 78.4 % (42.8-82.8); PLATELET COUNT 127 K/MM3 (134-434); RBC 4.72 M/mm3 (4.00-5.60); RDW 16.8 % (11.9-15.9); WHITE BLOOD COUNT 10.5 K/mm3 (4.0-10.0)
[2018-11-13 08:15] LABS: ALBUMIN 2.8 g/dl (3.4-5.0); ALK PHOS 104 U/L (45-117); ANION GAP 11 MMOL/L (8-16); BLOOD UREA NITROGEN 13 mg/dL (7-18); CALCIUM 8.2 mg/dL (8.5-10.1); CHLORIDE 109 mmol/L (98-107); CO2 20 mmol/L (21-32); CREATININE 1.1 mg/dL (0.55-1.3); GLUCOSE,RANDOM 135 mg/dL (74-106); POTASSIUM 3.3 mmol/L (3.5-5.1); SGOT/AST 60 U/L (15-37); SGPT/ALT 45 U/L (13-61); SODIUM 141 mmol/L (136-145)
[2018-11-13] MEDS ORDERED: PT OWN MED DRAWER 7, Y5N ONE (09:02)
[2018-11-13] MEDS ORDERED: VANCOMYCIN 1,250 MG in DEXTROSE 5%-WATER - 250 ML IVPB ONE ×2 (09:15→11:36)
--- NOTE | 2018-11-13 09:54 | PN ---
Progress Note, Physician Chief Complaint: pt resting comfortably afebrile, pt is on IV antibiotics urology note appreciated - Current Medication List Current Medications: Active Medications Acetaminophen (Tylenol -) 650 mg PO Q6H PRN PRN Reason: FEVER Last Admin: 11/12/18 16:38 Dose: 650 mg Imipenem/Cilastatin Sodium 500 (mg/ Sodium Chloride) 100 mls @ 100 mls/hr IVPB Q8H-IV LOLIS; Protocol Last Admin: 11/13/18 09:13 Dose: 100 mls/hr Dextrose/Sodium Chloride (D5-1/2ns -) 1,000 mls @ 50 mls/hr IV ASDIR LOLIS Last Admin: 11/13/18 09:13 Dose: 50 mls/hr Vancomycin HCl 1,250 mg/ (Dextrose) 250 mls @ 166.667 mls/hr IVPB ONCE ONE Stop: 11/13/18 10:44 Morphine Sulfate (Morphine Sulfate) 2 mg IVPUSH Q6H PRN PRN Reason: PAIN LEVEL 5-8 Last Admin: 11/13/18 06:25 Dose: 2 mg - Objective Vital Signs: Vital Signs Temperature 99 F 11/13/18 07:40 Pulse Rate 77 11/13/18 07:40 Respiratory Rate 20 11/13/18 07:40 Blood Pressure 141/85 11/13/18 07:40 O2 Sat by Pulse Oximetry (%) 98 11/12/18 21:00 Constitutional: Yes: No Distress Eyes: Yes: Conjunctiva Clear HENT: Yes: Atraumatic Neck: Yes: Supple, Trachea Midline Cardiovascular: Yes: Regular Rate and Rhythm Respiratory: Yes: Regular, CTA Bilaterally Gastrointestinal: Yes: Normal Bowel Sounds, Soft Musculoskeletal: Yes: WNL Extremities: Yes: WNL Edema: No Peripheral Pulses WNL: Yes Neurological: Yes: WNL, Alert ...Motor Strength: WNL Psychiatric: Yes: WNL Labs: CBC, BMP 11/13/18 06:30 11/13/18 06:30 INR, PTT INR 1.38 (0.83-1.09) H 11/11/18 16:30 Assessment/Plan CYSTOSCOPy,ureteric stent placement Rt ureteric stone ,fever,UTI Leucocytosis Pancreatic mass HTN PLAN continue antibiotics,IV fluid and pain MEDS UROLOGY f/u ID f/u Will monitor CBC and BUN and CREatinine
[2018-11-13] MEDS ORDERED: ONDANSETRON 4 MG/2 ML VIAL IVPUSH PRN (09:55)
[2018-11-13] MEDS ORDERED: POTASSIUM CHLORIDE TABS 20 MEQ TABLET.ER (FP) PO ONE ×2 (09:55→13:15)
[2018-11-13] MEDS ORDERED: PROPOFOL 20 ML ONE ×2 (10:14→10:15)
[2018-11-13] MEDS ORDERED: MIDAZOLAM HCL 2 MG/2 ML SINGLE DOSE VIAL ONE (10:14)
[2018-11-13] MEDS ORDERED: LIDOCAINE HCL/PF 2% SDV 5ML VIAL ONE (10:14)
[2018-11-13] MEDS ORDERED: VANCOMYCIN 1,000 MG VIAL (RESTRICTED TO ID ONLY) ONE (10:32)
[2018-11-13] MEDS ORDERED: GENTAMICIN SO4 80 MG/2 ML VIAL IVPB ONE (10:41)
[2018-11-13] MEDS ORDERED: GENTAMICIN SO4 80 MG/2 ML VIAL ONE (10:42)
[2018-11-13] MEDS ORDERED: DEXAMETHASONE SOD PHOSPHATE 4 MG/1 ML VIAL ONE (10:49)
--- NOTE | 2018-11-13 11:22 | OP ---
Operative Note - Note: Operative Date: 11/13/18 Pre-Operative Diagnosis: right ureteral stone with uti and acute renal insufficiency Operation: cystoscopy/right retrograde pyelogram/right ureteroscopic stone manipulation/right uretheral stent placement Findings: obstucting stone with pyuria once stone manipulated free; urine from right kidney sent for culture Post-Operative Diagnosis: Other (pyonephrosis with obstucting ureteral stone) Surgeon: Matty Deshpande Anesthesia: General Specimens Removed: urine culture from right kidney Drains & Tubes with Location: 04/23 right ureteral stent Operative Report Dictated: Yes
--- NOTE | 2018-11-13 14:09 | PN ---
Progress Note, Physician History of Present Illness: patient post procedure now feels much better stent placed - Current Medication List Current Medications: Active Medications Acetaminophen (Tylenol -) 650 mg PO Q6H PRN PRN Reason: FEVER Piperacillin Sod/Tazobactam (Sod 3.375 gm/ Dextrose) 50 mls @ 100 mls/hr IVPB Q8H-IV LOLIS; Protocol - Objective Vital Signs: Vital Signs Temperature 97.4 F L 11/13/18 11:55 Pulse Rate 77 11/13/18 11:55 Respiratory Rate 18 11/13/18 11:55 Blood Pressure 134/85 11/13/18 11:55 O2 Sat by Pulse Oximetry (%) 98 11/13/18 11:25 Constitutional: Yes: No Distress, Calm Cardiovascular: Yes: Regular Rate and Rhythm Respiratory: Yes: Regular, CTA Bilaterally Gastrointestinal: Yes: Normal Bowel Sounds, Soft Musculoskeletal: Yes: WNL Extremities: Yes: WNL Neurological: Yes: Alert, Oriented Psychiatric: Yes: Alert, Oriented Labs: CBC, BMP 11/13/18 06:30 11/13/18 06:30 INR, PTT INR 1.38 (0.83-1.09) H 11/11/18 16:30 Assessment/Plan uti renal stone gm positive bactermia pancreatic mass rt pyelo plan patients blood cx positive wiht multiple organisms awaiting for identification of the organissm will add vanco rest as per the team
[2018-11-13] MEDS ORDERED: DEXTROSE 5%-WATER - 50 ML IVPB ONE (17:47)
[2018-11-13] MEDS ORDERED: PIPERACILLIN/TAZOBACTAM 3.375 GM VIAL IVPB ONE (17:47)
[2018-11-13] MEDS: PIPERACILLIN/TAZOB 3.375 GM 3.375 GM in DEXTROSE 5%-WATER - 50 ML IVPB SCH (17:58)
[2018-11-13] MEDS ORDERED: IMIPENEM/CILASTATIN SODIUM 500 MG in SODIUM CHLORIDE 100 ML IVPB SCH (18:00)
[2018-11-13] MEDS: ACETAMINOPHEN 325 MG TABLET (FP) PO PRN (20:55)
[2018-11-14] MEDS ORDERED: PIPERACILLIN/TAZOBACTAM 3.375 GM VIAL IVPB ONE ×3 (01:55→17:26)
[2018-11-14] MEDS ORDERED: DEXTROSE 5%-WATER - 50 ML IVPB ONE ×3 (01:55→17:26)
[2018-11-14] MEDS: PIPERACILLIN/TAZOB 3.375 GM 3.375 GM in DEXTROSE 5%-WATER - 50 ML IVPB SCH ×3 (02:42→18:02)
--- NOTE | 2018-11-14 07:11 | OP ---
DATE OF OPERATION: 11/13/2018 PREOPERATIVE DIAGNOSIS: Right renal stone with urinary tract infection and acute renal insufficiency. POSTOPERATIVE DIAGNOSIS: Right renal stone with urinary tract infection and acute renal insufficiency. PROCEDURE: Cystoscopy, right retrograde pyelogram, right ureteroscopic stone manipulation, and right ureteral stent placement. ATTENDING: Erika Snow MD ANESTHESIA: General. OPERATION FOLLOWS: The patient was brought into the operating room, placed in supine position on the operating room table. General anesthesia and an extra dose of gentamicin were administered to the patient. The vancomycin was also given in the operating room setting. The patient was then placed in dorsal lithotomy position, prepped and draped in the usual sterile manner. The patient has a history of a significant UTI with fever to 104 and white count to 517 with renal insufficiency. The patient was stabilized and brought to the operating room for an obstructive 5 x 7 mm right ureteral stone. A retrograde pyelogram showed a high grade hydroureteronephrosis. A wire was passed into the kidney at this point. Ureteroscopy was performed. The obstructive stone was noted. Once it was dislodged with the ureteroscope, raymond pyuria was noted which severely limited the visualization of the ureter and stone. The stone was pushed into the kidney at this point, and the ureteroscope removed. The wire was utilized to place a ureteral stent measuring 6-Cambodian x 24 cm. This was done utilizing the Seldinger technique. There were no complications noted. The patient tolerated the procedure very well. DISPOSITION: The patient went to the recovery room. ERIKA SNOW M.D. [id number]
--- NOTE | 2018-11-14 07:48 | PN ---
Progress Note, Physician Chief Complaint: pt lyin bed,pt feels better S/p rt ureteral stent placement,cystoscopy,rt retrograde pyelogram afebrile Vitals stable Blood cul pending organism Pt is on IV fluid,antibiotics and pain meds - Current Medication List Current Medications: Active Medications Acetaminophen (Tylenol -) 650 mg PO Q6H PRN PRN Reason: FEVER Last Admin: 11/13/18 20:55 Dose: 650 mg Piperacillin Sod/Tazobactam (Sod 3.375 gm/ Dextrose) 50 mls @ 100 mls/hr IVPB Q8H-IV LOLIS; Protocol Last Admin: 11/14/18 02:42 Dose: 100 mls/hr - Objective Vital Signs: Vital Signs Temperature 98.1 F 11/14/18 06:00 Pulse Rate 98 H 11/14/18 06:00 Respiratory Rate 20 11/14/18 06:00 Blood Pressure 136/96 11/14/18 06:00 O2 Sat by Pulse Oximetry (%) 95 11/13/18 21:00 Constitutional: Yes: No Distress Eyes: Yes: Conjunctiva Clear HENT: Yes: Atraumatic Neck: Yes: Supple Cardiovascular: Yes: Regular Rate and Rhythm Respiratory: Yes: Regular, CTA Bilaterally Gastrointestinal: Yes: Normal Bowel Sounds Labs: INR, PTT INR 1.38 (0.83-1.09) H 11/11/18 16:30 Assessment/Plan S/p cystoscopy,rt retrograde pyelogram,rt ureteral stent placement Rt ureteric stone ,fever,UTI Leucocytosis Pancreatic mass HTN PLAN continue antibiotics,IV fluid and pain MEDS UROLOGY f/u ID f/u
[2018-11-14 07:58] LABS: BASO % 0.1 % (0-2.0); HEMOGLOBIN 13.8 GM/dL (11.7-16.9); LYMPH % 11.5 % (8-40); MCHC 34.6 g/dl (32.0-35.9); MEAN CELL VOLUME 83.9 fl (80-96); MEAN PLT VOLUME 9.1 fl (7.5-11.1); MONO % 8.4 % (3.8-10.2); PLATELET COUNT 179 K/MM3 (134-434); RBC 4.77 M/mm3 (4.00-5.60); WHITE BLOOD COUNT 14.8 K/mm3 (4.0-10.0)
[2018-11-14 08:22] LABS: ALK PHOS 104 U/L (45-117); ANION GAP 11 MMOL/L (8-16); BILIRUBIN,TOTAL 0.7 mg/dL (0.2-1); BLOOD UREA NITROGEN 17 mg/dL (7-18); CALCIUM 8.4 mg/dL (8.5-10.1); CHLORIDE 109 mmol/L (98-107); CO2 21 mmol/L (21-32); CREATININE 1.2 mg/dL (0.55-1.3); GLUCOSE,RANDOM 122 mg/dL (74-106); POTASSIUM 3.6 mmol/L (3.5-5.1); SGOT/AST 36 U/L (15-37); SGPT/ALT 48 U/L (13-61); SODIUM 141 mmol/L (136-145); TOT PROT 6.5 g/dl (6.4-8.2)
--- NOTE | 2018-11-14 08:22 | CONSULT ---
Consult - text type - Consultation Consultation Note: CC: right pyonephrosis with urosepsis s/p stent placement hpi: Patient is improved with resolution of right flank pain. Patient is voiding well with improving hematuria. Patient is afebrile and denies nause and vomiting. PE vss; afeb abd-soft, nontender; minimal right CVAT labs reviewed WBC trending downward creatinine has normalized imp urosepsis right pyonephrosis s/p stent placement plan urine from pyonephrotic right kidney sent for culture and positive blood cultures will need to be followed for antibiotic coverage as per ID will follow-up as outpatient
--- NOTE | 2018-11-14 13:54 | PN ---
Progress Note, Physician History of Present Illness: patient stable no fevers blood cx results noted awaiting identification of organisms - Current Medication List Current Medications: Active Medications Acetaminophen (Tylenol -) 650 mg PO Q6H PRN PRN Reason: FEVER Last Admin: 11/13/18 20:55 Dose: 650 mg Piperacillin Sod/Tazobactam (Sod 3.375 gm/ Dextrose) 50 mls @ 100 mls/hr IVPB Q8H-IV LOLIS; Protocol Last Admin: 11/14/18 09:57 Dose: 100 mls/hr - Objective Vital Signs: Vital Signs Temperature 97.3 F L 11/14/18 10:00 Pulse Rate 67 11/14/18 10:00 Respiratory Rate 18 11/14/18 10:00 Blood Pressure 146/82 11/14/18 10:00 O2 Sat by Pulse Oximetry (%) 99 11/14/18 09:00 Constitutional: Yes: No Distress, Calm Cardiovascular: Yes: Regular Rate and Rhythm Respiratory: Yes: Regular, CTA Bilaterally Gastrointestinal: Yes: Normal Bowel Sounds, Soft Musculoskeletal: Yes: WNL Extremities: Yes: WNL Neurological: Yes: Alert, Oriented Psychiatric: Yes: Alert, Oriented Labs: CBC, BMP 11/14/18 06:00 11/14/18 06:00 INR, PTT INR 1.38 (0.83-1.09) H 11/11/18 16:30 Assessment/Plan uti renal stone gm positive bactermia pancreatic mass plan continue zosyn will continue vanco will repeat blood cx plan of pancreatic mass rest as per the team
[2018-11-14] MEDS: VANCOMYCIN 1,250 MG in DEXTROSE 5%-WATER - 250 ML IVPB SCH (14:37)
[2018-11-14] MEDS: ACETAMINOPHEN 325 MG TABLET (FP) PO PRN (22:48)
[2018-11-15] MEDS ORDERED: PIPERACILLIN/TAZOBACTAM 3.375 GM VIAL IVPB ONE ×3 (01:20→20:04)
[2018-11-15] MEDS ORDERED: DEXTROSE 5%-WATER - 50 ML IVPB ONE ×3 (01:20→20:04)
[2018-11-15] MEDS: PIPERACILLIN/TAZOB 3.375 GM 3.375 GM in DEXTROSE 5%-WATER - 50 ML IVPB SCH ×3 (01:30→20:13)
[2018-11-15] MEDS: VANCOMYCIN 1,250 MG in DEXTROSE 5%-WATER - 250 ML IVPB SCH ×2 (02:17→15:07)
--- NOTE | 2018-11-15 09:44 | PN ---
Progress Note, Physician Chief Complaint: pt lyin bed,pt feels better urosepsis S/p rt ureteral stent placement,cystoscopy,rt retrograde pyelogram afebrile Vitals stable Blood cul pending organism Pt is on IV fluid,antibiotics and pain meds - Current Medication List Current Medications: Active Medications Acetaminophen (Tylenol -) 650 mg PO Q6H PRN PRN Reason: FEVER Last Admin: 11/14/18 22:48 Dose: 650 mg Piperacillin Sod/Tazobactam (Sod 3.375 gm/ Dextrose) 50 mls @ 100 mls/hr IVPB Q8H-IV LOLIS; Protocol Last Admin: 11/15/18 01:30 Dose: 100 mls/hr Vancomycin HCl 1,250 mg/ (Dextrose) 250 mls @ 166.667 mls/hr IVPB Q12H LOLIS; Protocol Last Admin: 11/15/18 02:17 Dose: 166.667 mls/hr - Objective Vital Signs: Vital Signs Temperature 98.0 F 11/15/18 06:00 Pulse Rate 57 L 11/15/18 06:00 Respiratory Rate 18 11/15/18 06:00 Blood Pressure 139/86 11/15/18 06:00 O2 Sat by Pulse Oximetry (%) 99 11/14/18 21:00 Constitutional: Yes: No Distress Eyes: Yes: Conjunctiva Clear HENT: Yes: Atraumatic Neck: Yes: Supple Cardiovascular: Yes: Regular Rate and Rhythm Respiratory: Yes: Regular Gastrointestinal: Yes: Normal Bowel Sounds Musculoskeletal: Yes: WNL Edema: Yes Peripheral Pulses WNL: Yes Neurological: Yes: WNL, Alert ...Motor Strength: WNL Psychiatric: Yes: WNL Labs: CBC, BMP 11/14/18 06:00 11/14/18 06:00 INR, PTT INR 1.38 (0.83-1.09) H 11/11/18 16:30 Assessment/Plan S/p cystoscopy,rt retrograde pyelogram,rt ureteral stent placement urosepsis Rt ureteric stone ,fever,UTI Leucocytosis Pancreatic mass HTN PLAN continue antibiotics,IV fluid and pain MEDS UROLOGY f/u ID f/u will f/u blood cul
--- NOTE | 2018-11-15 09:46 | PN ---
Progress Note (short form) - Note Progress Note: S/P Cystoscopy with stent placement under [place] uneventful.Patient stable.No any anesthesia related problem.Patient DC from the anesthesia care.
[2018-11-15] MEDS ORDERED: POLYETHYLENE GLYCOL 3350 119 GM BTL PO PRN (10:24)
--- NOTE | 2018-11-15 10:41 | PN ---
Progress Note, Physician History of Present Illness: complaining of dysuria still awaiting identification of the organisms - Current Medication List Current Medications: Active Medications Acetaminophen (Tylenol -) 650 mg PO Q6H PRN PRN Reason: FEVER Last Admin: 11/14/18 22:48 Dose: 650 mg Piperacillin Sod/Tazobactam (Sod 3.375 gm/ Dextrose) 50 mls @ 100 mls/hr IVPB Q8H-IV LOLIS; Protocol Last Admin: 11/15/18 10:30 Dose: 100 mls/hr Vancomycin HCl 1,250 mg/ (Dextrose) 250 mls @ 166.667 mls/hr IVPB Q12H LOLIS; Protocol Last Admin: 11/15/18 02:17 Dose: 166.667 mls/hr Polyethylene Glycol (Miralax (For Daily Use) -) 17 gm PO DAILY PRN PRN Reason: CONSTIPATION - Objective Vital Signs: Vital Signs Temperature 98.0 F 11/15/18 06:00 Pulse Rate 57 L 11/15/18 06:00 Respiratory Rate 18 11/15/18 06:00 Blood Pressure 139/86 11/15/18 06:00 O2 Sat by Pulse Oximetry (%) 99 11/14/18 21:00 Constitutional: Yes: Calm, Mild Distress Cardiovascular: Yes: Regular Rate and Rhythm Respiratory: Yes: Regular, CTA Bilaterally Gastrointestinal: Yes: Normal Bowel Sounds, Soft Musculoskeletal: Yes: WNL Extremities: Yes: WNL Neurological: Yes: Alert, Oriented Psychiatric: Yes: Alert, Oriented Labs: CBC, BMP 11/14/18 06:00 11/14/18 06:00 INR, PTT INR 1.38 (0.83-1.09) H 11/11/18 16:30 Assessment/Plan uti renal stone gm positive bactermia pancreatic mass rt pyelo plan await for repeat blood cx will continue current abx await for identification of the organisms rest as per the team will check vanco trough
--- NOTE | 2018-11-15 11:58 | CON.GI ---
Consult Consult Specialty:: Gastroenterology Referred by:: Dr. Dulce Maria Banegas Reason for Consultation:: Pancreatic Mass - History of Present Illness Chief Complaint: RUQ pain and nausea History of Present Illness: Patient is a 68 y/o male admitted for renal colic. Patient was asked to be seen due to incidental finding of pancreatic mass on CT scan performed on . Mass measures 2.5cm in size. Patient had biopsy of mass done 4 months ago at [facility] and was told mass is benign. Denies nausea, vomiting, diarrhea, dysphagia, abnormal weight loss. Lost 30 lbs in 3 mos after having an emergency surgery for ruptured appendix and gallbladder Aug 2018 . He was hospitalized in [facility]. 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: CVA Cardio/Vascular: Yes: HTN Renal/: Yes: Renal Calculi - Past Surgical History Past Surgical History: Yes: Appendectomy, Cholecystectomy - Alcohol/Substance Use Hx Alcohol Use: No - Smoking History Smoking history: Current every day smoker Have you smoked in the past 12 months: No Aproximately how many cigarettes per day: 10 Home Medications - Allergies Allergies/Adverse Reactions: Allergies Allergy/AdvReac Type Severity Reaction Status Date / Time No Known Allergies Allergy Verified 11/09/18 07:17 - Home Medications Home Medications: Ambulatory Orders Amlodipine Besylate [Norvasc -] 10 mg PO DAILY 11/09/18 Diclofenac Potassium 50 mg PO ASDIR 11/09/18 Fluticasone Furoate [Children's Flonase Sensimist] 5.9 ml NS ASDIR 11/09/18 Loratadine 10 mg PO ASDIR 11/09/18 Omeprazole 20 mg PO ASDIR 11/09/18 Oxybutynin Chloride [Ditropan -] 5 mg PO DAILY 11/09/18 Selenium 25 mcg PO ASDIR 11/09/18 Tamsulosin HCl [Flomax] 0.4 mg PO DAILY #7 cap.er.24h 11/09/18 Tramadol HCl 50 mg PO BID #4 tablet MDD 2 11/09/18 Review of Systems - Review of Systems Constitutional: reports: No Symptoms Eyes: reports: No Symptoms HENT: reports: No Symptoms Neck: reports: No Symptoms Cardiovascular: reports: No Symptoms Respiratory: reports: No Symptoms Gastrointestinal: reports: Constipation Genitourinary: reports: No Symptoms Breasts: reports: No Symptoms Reported Musculoskeletal: reports: No Symptoms Integumentary: reports: No Symptoms Neurological: reports: No Symptoms Endocrine: reports: No Symptoms Hematology/Lymphatic: reports: No Symptoms Psychiatric: reports: No Symptoms Physical Exam-GI Vital Signs: Vital Signs Temperature 98 F 11/15/18 10:54 Pulse Rate 57 L 11/15/18 10:54 Respiratory Rate 20 11/15/18 10:54 Blood Pressure 135/73 11/15/18 10:54 O2 Sat by Pulse Oximetry (%) 99 11/14/18 21:00 Constitutional: Yes: Well Nourished, No Distress, Calm Eyes: Yes: Conjunctiva Clear Neck: Yes: Supple Cardiovascular: Yes: Regular Rate and Rhythm Respiratory: Yes: Regular, CTA Bilaterally Gastrointestinal Inspection: Yes: WNL ...Auscultate: Yes: Normoactive Bowel Sounds. No: No Bowel Sounds ...Palpate: Yes: Soft. No: Firm/Rigid, Guarding, Mass, Pulsatile Mass, Splenomegaly, Tenderness, Tenderness, Epigastium Labs: CBC, BMP 11/14/18 06:00 11/14/18 06:00 INR, PTT INR 1.38 (0.83-1.09) H 11/11/18 16:30 Hepatic Panel Total Bilirubin 0.7 mg/dL (0.2-1) 11/14/18 06:00 AST 36 U/L (15-37) 11/14/18 06:00 ALT 48 U/L (13-61) 11/14/18 06:00 Alkaline Phosphatase 104 U/L (45-117) 11/14/18 06:00 Albumin 3.0 g/dl (3.4-5.0) L 11/14/18 06:00 Home Medications Medication Instructions Recorded Amlodipine Besylate [Norvasc -] 10 mg PO DAILY 11/09/18 Diclofenac Potassium 50 mg PO ASDIR 11/09/18 Fluticasone Furoate [Children's 5.9 ml NS ASDIR 11/09/18 Flonase Sensimist] Loratadine 10 mg PO ASDIR 11/09/18 Omeprazole 20 mg PO ASDIR 11/09/18 Oxybutynin Chloride [Ditropan -] 5 mg PO DAILY 11/09/18 Selenium 25 mcg PO ASDIR 11/09/18 Tamsulosin HCl [Flomax] 0.4 mg PO DAILY #7 cap.er.24h 11/09/18 Tramadol HCl 50 mg PO BID #4 tablet MDD 2 11/09/18 Current Medications Acetaminophen (Tylenol -) 650 mg PO Q6H PRN PRN Reason: FEVER Last Admin: 11/15/18 14:55 Dose: 650 mg Piperacillin Sod/Tazobactam (Sod 3.375 gm/ Dextrose) 50 mls @ 100 mls/hr IVPB Q8H-IV LOLIS; Protocol Last Admin: 11/15/18 20:13 Dose: 100 mls/hr Vancomycin HCl 1,250 mg/ (Dextrose) 250 mls @ 166.667 mls/hr IVPB Q12H LOLIS; Protocol Last Admin: 11/15/18 15:07 Dose: 166.667 mls/hr Sodium Chloride (Normal Saline -) 1,000 mls @ 100 mls/hr IV ASDIR LOLIS Stop: 11/15/18 22:14 Last Admin: 11/15/18 15:06 Dose: 100 mls/hr Polyethylene Glycol (Miralax (For Daily Use) -) 17 gm PO DAILY PRN PRN Reason: CONSTIPATION Problem List - Problems (1) Pancreatic mass Assessment/Plan: 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
[2018-11-15] MEDS ORDERED: SODIUM CHLORIDE 1,000 ML IV SCH (12:15)
[2018-11-15] MEDS: ACETAMINOPHEN 325 MG TABLET (FP) PO PRN (14:55)
[2018-11-16] MEDS ORDERED: DEXTROSE 5%-WATER - 50 ML IVPB ONE ×3 (01:35→17:43)
[2018-11-16] MEDS ORDERED: PIPERACILLIN/TAZOBACTAM 3.375 GM VIAL IVPB ONE ×3 (01:35→17:43)
[2018-11-16] MEDS: PIPERACILLIN/TAZOB 3.375 GM 3.375 GM in DEXTROSE 5%-WATER - 50 ML IVPB SCH ×4 (02:15→18:47)
[2018-11-16] MEDS: VANCOMYCIN 1,250 MG in DEXTROSE 5%-WATER - 250 ML IVPB SCH ×2 (02:15→15:01)
[2018-11-16 07:44] LABS: BASO % 0.6 % (0-2.0); EOS % 3.3 % (0-4.5); HEMATOCRIT 38.2 % (35.4-49); HEMOGLOBIN 12.9 GM/dL (11.7-16.9); LYMPH % 23.5 % (8-40); MCH 28.7 pg (25.7-33.7); MCHC 33.8 g/dl (32.0-35.9); MEAN CELL VOLUME 84.7 fl (80-96); MEAN PLT VOLUME 8.3 fl (7.5-11.1); MONO % 11.2 % (3.8-10.2); NEUT % 61.4 % (42.8-82.8); PLATELET COUNT 230 K/MM3 (134-434); RDW 17.3 % (11.9-15.9); WHITE BLOOD COUNT 11.8 K/mm3 (4.0-10.0)
[2018-11-16 08:54] LABS: ALBUMIN 2.7 g/dl (3.4-5.0); ALK PHOS 88 U/L (45-117); ANION GAP 10 MMOL/L (8-16); BILIRUBIN,TOTAL 0.8 mg/dL (0.2-1); BLOOD UREA NITROGEN 11 mg/dL (7-18); CALCIUM 7.9 mg/dL (8.5-10.1); CHLORIDE 108 mmol/L (98-107); CO2 23 mmol/L (21-32); CREATININE 0.9 mg/dL (0.55-1.3); GLUCOSE,RANDOM 96 mg/dL (74-106); POTASSIUM 3.6 mmol/L (3.5-5.1); SGOT/AST 17 U/L (15-37); SGPT/ALT 31 U/L (13-61); SODIUM 141 mmol/L (136-145)
--- NOTE | 2018-11-16 10:05 | PN ---
Progress Note, Physician Chief Complaint: pt lyin bed,pt feels better urosepsis S/p rt ureteral stent placement,cystoscopy,rt retrograde pyelogram afebrile Vitals stable Blood cul gm positive cocci,rpt blood cul negative Pt is on IV fluid,antibiotics and pain meds Gi consult pending - Current Medication List Current Medications: Active Medications Acetaminophen (Tylenol -) 650 mg PO Q6H PRN PRN Reason: FEVER Last Admin: 11/15/18 14:55 Dose: 650 mg Piperacillin Sod/Tazobactam (Sod 3.375 gm/ Dextrose) 50 mls @ 100 mls/hr IVPB Q8H-IV LOLIS; Protocol Last Admin: 11/16/18 02:15 Dose: 100 mls/hr Vancomycin HCl 1,250 mg/ (Dextrose) 250 mls @ 166.667 mls/hr IVPB Q12H LOLIS; Protocol Last Admin: 11/16/18 02:15 Dose: 166.667 mls/hr Polyethylene Glycol (Miralax (For Daily Use) -) 17 gm PO DAILY PRN PRN Reason: CONSTIPATION - Objective Vital Signs: Vital Signs Temperature 98.1 F 11/16/18 06:00 Pulse Rate 65 11/16/18 06:00 Respiratory Rate 20 11/16/18 06:00 Blood Pressure 142/84 11/16/18 06:00 O2 Sat by Pulse Oximetry (%) 99 11/15/18 11:00 Constitutional: Yes: No Distress Eyes: Yes: Conjunctiva Clear HENT: Yes: Atraumatic Neck: Yes: Supple, Trachea Midline Cardiovascular: Yes: Regular Rate and Rhythm Respiratory: Yes: Regular, CTA Bilaterally Gastrointestinal: Yes: Normal Bowel Sounds, Soft Musculoskeletal: Yes: WNL Extremities: Yes: WNL Edema: No Peripheral Pulses WNL: Yes Neurological: Yes: WNL, Alert ...Motor Strength: WNL Psychiatric: Yes: WNL, Alert Labs: CBC, BMP 11/16/18 07:00 11/16/18 07:00 INR, PTT INR 1.38 (0.83-1.09) H 11/11/18 16:30 Assessment/Plan S/p cystoscopy,rt retrograde pyelogram,rt ureteral stent placement urosepsis Rt ureteric stone ,fever,UTI Leucocytosis Pancreatic mass FOR MRI abdomen HTN PLAN continue antibiotics,IV fluid and pain MEDS UROLOGY f/u ID f/u will f/u MRI report
[2018-11-16 11:22] LABS: ANISOCYTOSIS 0; MACROCYTOSIS 0; PLATELET ESTIMATE NORMAL
--- NOTE | 2018-11-16 14:27 | PN ---
Progress Note, Physician History of Present Illness: Pt seen and examined, events noted. at bedside. Pt states he feels well, has no specific complaints. - Current Medication List Current Medications: Active Medications Acetaminophen (Tylenol -) 650 mg PO Q6H PRN PRN Reason: FEVER Last Admin: 11/15/18 14:55 Dose: 650 mg Piperacillin Sod/Tazobactam (Sod 3.375 gm/ Dextrose) 50 mls @ 100 mls/hr IVPB Q8H-IV LOLIS; Protocol Last Admin: 11/16/18 11:31 Dose: 100 mls/hr Vancomycin HCl 1,250 mg/ (Dextrose) 250 mls @ 166.667 mls/hr IVPB Q12H LOLIS; Protocol Last Admin: 11/16/18 02:15 Dose: 166.667 mls/hr Polyethylene Glycol (Miralax (For Daily Use) -) 17 gm PO DAILY PRN PRN Reason: CONSTIPATION - Objective Vital Signs: Vital Signs Temperature 97.8 F 11/16/18 11:00 Pulse Rate 85 11/16/18 11:00 Respiratory Rate 20 11/16/18 11:00 Blood Pressure 147/85 11/16/18 11:00 O2 Sat by Pulse Oximetry (%) 99 11/15/18 11:00 Constitutional: Yes: No Distress, Calm Cardiovascular: Yes: Regular Rate and Rhythm Respiratory: Yes: CTA Bilaterally Gastrointestinal: Yes: Normal Bowel Sounds, Soft Genitourinary: Yes: WNL Extremities: Yes: WNL Integumentary: Yes: WNL Neurological: Yes: Alert, Oriented Labs: CBC, BMP 11/16/18 07:00 11/16/18 07:00 INR, PTT INR 1.38 (0.83-1.09) H 11/11/18 16:30 Microbiology 11/11/18 16:30 Blood - Peripheral Venous Blood Culture - Preliminary Gram Positive Cocci Gram Positive Cocci#2 11/11/18 17:00 Blood - Peripheral Venous Blood Culture - Preliminary Gram Positive Cocci Gram Positive Cocci#2 11/15/18 06:20 Blood - Peripheral Venous Blood Culture - Preliminary NO GROWTH OBTAINED AFTER 24 HOURS, INCUBATION TO CONTINUE FOR 4 DAYS. 11/15/18 06:15 Blood - Peripheral Venous Blood Culture - Preliminary NO GROWTH OBTAINED AFTER 24 HOURS, INCUBATION TO CONTINUE FOR 4 DAYS. 11/13/18 13:03 Urine - Urine Clean Catch Urine Culture - Final NO GROWTH OBTAINED 11/11/18 17:10 Urine - Urine Clean Catch Urine Culture - Final Problem List - Problems (1) Fever Code(s): R50.9 - FEVER, UNSPECIFIED (2) Kidney stone Code(s): N20.0 - CALCULUS OF KIDNEY (3) Pancreatic mass Code(s): K86.9 - DISEASE OF PANCREAS, UNSPECIFIED (4) HTN (hypertension) Code(s): I10 - ESSENTIAL (PRIMARY) HYPERTENSION Assessment/Plan UTI/Obstructing renal stone s/p stent placement Gram Positive Bacteremia -- continue IV antibiotics -- follow up Blood culture results, repeat blood cultures no growth in 24hrs -- GI following for workup of pancreatic mass continue monitor
[2018-11-17] MEDS ORDERED: DEXTROSE 5%-WATER - 50 ML IVPB ONE ×2 (01:25→11:03)
[2018-11-17] MEDS ORDERED: PIPERACILLIN/TAZOBACTAM 3.375 GM VIAL IVPB ONE ×2 (01:25→11:03)
[2018-11-17] MEDS: PIPERACILLIN/TAZOB 3.375 GM 3.375 GM in DEXTROSE 5%-WATER - 50 ML IVPB SCH ×2 (01:37→11:11)
[2018-11-17] MEDS: VANCOMYCIN 1,250 MG in DEXTROSE 5%-WATER - 250 ML IVPB SCH ×2 (02:16→15:00)
--- NOTE | 2018-11-17 07:16 | PN ---
Progress Note, Physician Chief Complaint: pt lyin bed,pt feels better urosepsis S/p rt ureteral stent placement,cystoscopy,rt retrograde pyelogram afebrile Vitals stable gm positive bacteremia,rpt blood cul negative Pt is on IV fluid,antibiotics and pain meds MRI of abdomen with MRCP shows4.6x2.6 cm mass in Pancreatic body proximal tail with distal pacreatic atrophy and ductal dialation hihgly suspicious for neoplastic process some perjpancreatic lymphnode ,simple renal cyst - Current Medication List Current Medications: Active Medications Acetaminophen (Tylenol -) 650 mg PO Q6H PRN PRN Reason: FEVER Last Admin: 11/15/18 14:55 Dose: 650 mg Piperacillin Sod/Tazobactam (Sod 3.375 gm/ Dextrose) 50 mls @ 100 mls/hr IVPB Q8H-IV LOLIS; Protocol Last Admin: 11/17/18 01:37 Dose: 100 mls/hr Vancomycin HCl 1,250 mg/ (Dextrose) 250 mls @ 166.667 mls/hr IVPB Q12H LOLIS; Protocol Last Admin: 11/17/18 02:16 Dose: 166.667 mls/hr Polyethylene Glycol (Miralax (For Daily Use) -) 17 gm PO DAILY PRN PRN Reason: CONSTIPATION - Objective Vital Signs: Vital Signs Temperature 98.0 F 11/17/18 06:00 Pulse Rate 58 L 11/17/18 06:00 Respiratory Rate 20 11/17/18 06:00 Blood Pressure 140/80 11/17/18 06:00 O2 Sat by Pulse Oximetry (%) 99 11/15/18 11:00 Constitutional: Yes: No Distress Eyes: Yes: Conjunctiva Clear HENT: Yes: Atraumatic Neck: Yes: Supple Cardiovascular: Yes: Regular Rate and Rhythm Respiratory: Yes: Regular, CTA Bilaterally Gastrointestinal: Yes: Normal Bowel Sounds, Soft Musculoskeletal: Yes: WNL Extremities: Yes: WNL Edema: No Peripheral Pulses WNL: Yes Neurological: Yes: WNL, Alert ...Motor Strength: WNL Psychiatric: Yes: WNL Labs: CBC, BMP 11/16/18 07:00 11/16/18 07:00 INR, PTT INR 1.38 (0.83-1.09) H 11/11/18 16:30 Assessment/Plan S/p cystoscopy,rt retrograde pyelogram,rt ureteral stent placement urosepsis Rt ureteric stone ,fever,UTI Leucocytosis coming down Pancreatic mass CEA2,[id number] 23 gm positive bacteremia HTN PLAN continue antibiotics,IV fluid and pain MEDS UROLOGY f/u ID f/u Gi f/u Oncology consult
--- NOTE | 2018-11-17 13:28 | PN ---
Progress Note, Physician History of Present Illness: patient doing well no new issues wbc trending down - Current Medication List Current Medications: Active Medications Acetaminophen (Tylenol -) 650 mg PO Q6H PRN PRN Reason: FEVER Last Admin: 11/15/18 14:55 Dose: 650 mg Piperacillin Sod/Tazobactam (Sod 3.375 gm/ Dextrose) 50 mls @ 100 mls/hr IVPB Q8H-IV LOLIS; Protocol Last Admin: 11/17/18 11:11 Dose: 100 mls/hr Vancomycin HCl 1,250 mg/ (Dextrose) 250 mls @ 166.667 mls/hr IVPB Q12H LOLIS; Protocol Last Admin: 11/17/18 02:16 Dose: 166.667 mls/hr Polyethylene Glycol (Miralax (For Daily Use) -) 17 gm PO DAILY PRN PRN Reason: CONSTIPATION - Objective Vital Signs: Vital Signs Temperature 98.2 F 11/17/18 10:00 Pulse Rate 60 11/17/18 10:00 Respiratory Rate 17 11/17/18 10:00 Blood Pressure 144/75 11/17/18 10:00 O2 Sat by Pulse Oximetry (%) 99 11/15/18 11:00 Constitutional: Yes: No Distress, Calm Cardiovascular: Yes: Regular Rate and Rhythm Respiratory: Yes: Regular, CTA Bilaterally Gastrointestinal: Yes: Normal Bowel Sounds, Soft Musculoskeletal: Yes: WNL Extremities: Yes: WNL Neurological: Yes: Alert, Oriented Psychiatric: Yes: Alert, Oriented Labs: CBC, BMP 11/16/18 07:00 11/16/18 07:00 INR, PTT INR 1.38 (0.83-1.09) H 11/11/18 16:30 Assessment/Plan uti renal stone gm positive bactermia pancreatic mass rt pyelo plan repeat blood cx negative will jitendra chavez spoke with micro probably id of the organism tomorrow rest as per the davon evans
[2018-11-17] MEDS ORDERED: PT OWN MED DRAWER 7, Y5N ONE (14:00)
[2018-11-18] MEDS: VANCOMYCIN 1,250 MG in DEXTROSE 5%-WATER - 250 ML IVPB SCH ×2 (01:45→15:22)
--- NOTE | 2018-11-18 07:36 | PN ---
Progress Note, Physician Chief Complaint: pt lyin bed,pt feels better urosepsis S/p rt ureteral stent placement,cystoscopy,rt retrograde pyelogram afebrile Vitals stable gm positive bacteremia,rpt blood cul negative Pt is on IV fluid,antibiotics and pain meds MRI of abdomen with MRCP shows4.6x2.6 cm mass in Pancreatic body proximal tail with distal pacreatic atrophy and ductal dialation hihgly suspicious for neoplastic process some perjpancreatic lymphnode ,simple renal cyst oncology cosult pending - Current Medication List Current Medications: Active Medications Acetaminophen (Tylenol -) 650 mg PO Q6H PRN PRN Reason: FEVER Last Admin: 11/15/18 14:55 Dose: 650 mg Vancomycin HCl 1,250 mg/ (Dextrose) 250 mls @ 166.667 mls/hr IVPB Q12H LOLIS; Protocol Last Admin: 11/18/18 01:45 Dose: 166.667 mls/hr Polyethylene Glycol (Miralax (For Daily Use) -) 17 gm PO DAILY PRN PRN Reason: CONSTIPATION - Objective Vital Signs: Vital Signs Temperature 98.0 F 11/18/18 07:14 Pulse Rate 75 11/18/18 07:14 Respiratory Rate 18 11/18/18 07:14 Blood Pressure 160/86 11/18/18 07:14 O2 Sat by Pulse Oximetry (%) 97 11/17/18 21:00 Constitutional: Yes: No Distress Eyes: Yes: Conjunctiva Clear HENT: Yes: Atraumatic Neck: Yes: Supple, Trachea Midline Cardiovascular: Yes: Regular Rate and Rhythm Respiratory: Yes: Regular, CTA Bilaterally Gastrointestinal: Yes: Normal Bowel Sounds, Soft Musculoskeletal: Yes: WNL Extremities: Yes: WNL Edema: No Peripheral Pulses WNL: Yes Neurological: Yes: WNL, Alert ...Motor Strength: WNL Psychiatric: Yes: WNL Labs: CBC, BMP 11/16/18 07:00 11/16/18 07:00 INR, PTT INR 1.38 (0.83-1.09) H 11/11/18 16:30 Assessment/Plan S/p cystoscopy,rt retrograde pyelogram,rt ureteral stent placement urosepsis Rt ureteric stone ,fever,UTI Leucocytosis coming down Pancreatic mass CEA2,[id number] 23 gm positive bacteremia HTN PLAN continue antibiotics,IV fluid and pain MEDS UROLOGY f/u ID f/u Gi f/u Oncology consult pending
--- NOTE | 2018-11-18 13:16 | PN ---
Progress Note, Physician History of Present Illness: Pt states he is feeling well. Labs noted, leukocytosis resolved, patient afebrile. Currently he has no specific complaints. - Current Medication List Current Medications: Active Medications Acetaminophen (Tylenol -) 650 mg PO Q6H PRN PRN Reason: FEVER Last Admin: 11/15/18 14:55 Dose: 650 mg Vancomycin HCl 1,250 mg/ (Dextrose) 250 mls @ 166.667 mls/hr IVPB Q12H LOLIS; Protocol Last Admin: 11/18/18 01:45 Dose: 166.667 mls/hr Polyethylene Glycol (Miralax (For Daily Use) -) 17 gm PO DAILY PRN PRN Reason: CONSTIPATION - Objective Vital Signs: Vital Signs Temperature 98.0 F 11/18/18 07:14 Pulse Rate 75 11/18/18 07:14 Respiratory Rate 18 11/18/18 07:14 Blood Pressure 160/86 11/18/18 07:14 O2 Sat by Pulse Oximetry (%) 97 11/17/18 21:00 Constitutional: Yes: No Distress, Calm Cardiovascular: Yes: Regular Rate and Rhythm Respiratory: Yes: Regular Gastrointestinal: Yes: Normal Bowel Sounds, Soft Integumentary: Yes: WNL Neurological: Yes: Alert Labs: CBC, BMP 11/16/18 07:00 11/16/18 07:00 INR, PTT INR 1.38 (0.83-1.09) H 11/11/18 16:30 Laboratory Tests 11/11/18 11/11/18 11/11/18 16:30 16:30 16:30 WBC 17.3 H RBC 5.23 Hgb 15.3 Hct 43.9 MCV 84.0 MCH 29.2 MCHC 34.8 RDW 17.3 H Plt Count 156 D MPV 8.8 Absolute Neuts (auto) 16.1 H Neutrophils % 93.2 H Neutrophils % (Manual) 79.0 Band Neutrophils % 13.0 Lymphocytes % 2.2 L D Lymphocytes % (Manual) 6.0 L Monocytes % 4.2 Monocytes % (Manual) 2 L Eosinophils % 0.1 D Eosinophils % (Manual) 0.0 Basophils % 0.3 Basophils % (Manual) 0.0 Myelocytes % (Man) Promyelocytes % (Man) Blast Cells % (Manual) Nucleated RBC % 0 Metamyelocytes Hypochromia Platelet Estimate Adequate Polychromasia Poikilocytosis Anisocytosis Microcytosis Macrocytosis PT with INR INR PTT (Actin FS) 25.5 Sodium Cancelled Potassium Cancelled Chloride Cancelled Carbon Dioxide Cancelled Anion Gap Cancelled BUN Cancelled Creatinine Cancelled Creat Clearance w eGFR Cancelled Random Glucose Cancelled Lactic Acid Calcium Cancelled Magnesium Cancelled Total Bilirubin Cancelled AST Cancelled ALT Cancelled Alkaline Phosphatase Cancelled Creatine Kinase Creatine Kinase Index CK-MB (CK-2) Troponin I Cancelled Total Protein Cancelled Albumin Cancelled Total Amylase Lipase Carcinoembryonic Ag CA 19-9 Antigen Urine Color Urine Appearance Urine pH Ur Specific [place] Urine Protein Urine Glucose (UA) Urine Ketones Urine Blood Urine Nitrite Urine Bilirubin Urine Urobilinogen Ur Leukocyte Esterase Urine WBC (Auto) Urine RBC (Auto) Ur Epithelial Cells Urine Bacteria Urine Mucus Vancomycin Pre-Dose Influenza A (Rapid) Influenza B (Rapid) 11/11/18 11/11/18 11/11/18 16:30 16:30 17:10 WBC RBC Hgb Hct MCV MCH MCHC RDW Plt Count MPV Absolute Neuts (auto) Neutrophils % Neutrophils % (Manual) Band Neutrophils % Lymphocytes % Lymphocytes % (Manual) Monocytes % Monocytes % (Manual) Eosinophils % Eosinophils % (Manual) Basophils % Basophils % (Manual) Myelocytes % (Man) Promyelocytes % (Man) Blast Cells % (Manual) Nucleated RBC % Metamyelocytes Hypochromia Platelet Estimate Polychromasia Poikilocytosis Anisocytosis Microcytosis Macrocytosis PT with INR 16.30 H INR 1.38 H PTT (Actin FS) Sodium Potassium Chloride Carbon Dioxide Anion Gap BUN Creatinine Creat Clearance w eGFR Random Glucose Lactic Acid 2.8 H* Calcium Magnesium Total Bilirubin AST ALT Alkaline Phosphatase Creatine Kinase Creatine Kinase Index CK-MB (CK-2) Troponin I Total Protein Albumin Total Amylase Lipase Carcinoembryonic Ag CA 19-9 Antigen Urine Color Yellow Urine Appearance Cloudy Urine pH 5.0 D Ur Specific [place] 1.021 Urine Protein 2+ H Urine Glucose (UA) Negative Urine Ketones 2+ H Urine Blood 2+ H Urine Nitrite Negative Urine Bilirubin Negative Urine Urobilinogen 2.0 Ur Leukocyte Esterase Trace Urine WBC (Auto) 12 Urine RBC (Auto) 1 Ur Epithelial Cells Rare Urine Bacteria Rare Urine Mucus Rare Vancomycin Pre-Dose Influenza A (Rapid) Influenza B (Rapid) 0111/11/18 11/11/18 17:30 17:56 20:27 WBC RBC Hgb Hct MCV MCH MCHC RDW Plt Count MPV Absolute Neuts (auto) Neutrophils % Neutrophils % (Manual) Band Neutrophils % Lymphocytes % Lymphocytes % (Manual) Monocytes % Monocytes % (Manual) Eosinophils % Eosinophils % (Manual) Basophils % Basophils % (Manual) Myelocytes % (Man) Promyelocytes % (Man) Blast Cells % (Manual) Nucleated RBC % Metamyelocytes Hypochromia Platelet Estimate Polychromasia Poikilocytosis Anisocytosis Microcytosis Macrocytosis PT with INR INR PTT (Actin FS) Sodium 138 Potassium 4.0 Chloride 106 Carbon Dioxide 20 L Anion Gap 12 BUN 28 H Creatinine 2.0 H Creat Clearance w eGFR 33.39 Random Glucose 147 H Lactic Acid 1.2 Calcium 8.1 L Magnesium Total Bilirubin 0.9 AST 45 H ALT 28 Alkaline Phosphatase 95 Creatine Kinase 231 Creatine Kinase Index 0.4 CK-MB (CK-2) < 1.0 Troponin I < 0.02 Total Protein 6.1 L Albumin 2.9 L Total Amylase 63 Lipase 36 L Carcinoembryonic Ag CA 19-9 Antigen Urine Color Urine Appearance Urine pH Ur Specific [place] Urine Protein Urine Glucose (UA) Urine Ketones Urine Blood Urine Nitrite Urine Bilirubin Urine Urobilinogen Ur Leukocyte Esterase Urine WBC (Auto) Urine RBC (Auto) Ur Epithelial Cells Urine Bacteria Urine Mucus Vancomycin Pre-Dose Influenza A (Rapid) Negative Influenza B (Rapid) Negative 11/12/18 11/12/18 11/13/18 09:30 09:30 06:30 WBC 14.6 H 10.5 H RBC 4.52 4.72 Hgb 13.2 12.8 Hct 37.9 40.1 MCV 83.9 84.9 MCH 29.1 27.1 MCHC 34.7 31.9 L RDW 17.0 H 16.8 H Plt Count 142 127 L MPV 8.9 8.6 Absolute Neuts (auto) 13.0 H 8.2 H Neutrophils % 89.2 H 78.4 Neutrophils % (Manual) Band Neutrophils % Lymphocytes % 4.8 L D 10.2 D Lymphocytes % (Manual) Monocytes % 5.6 10.7 H D Monocytes % (Manual) Eosinophils % 0.2 D 0.5 D Eosinophils % (Manual) Basophils % 0.2 0.2 Basophils % (Manual) Myelocytes % (Man) Promyelocytes % (Man) Blast Cells % (Manual) Nucleated RBC % 0 0 Metamyelocytes Hypochromia Platelet Estimate Polychromasia Poikilocytosis Anisocytosis Microcytosis Macrocytosis PT with INR INR PTT (Actin FS) Sodium 142 Potassium 3.8 Chloride 112 H Carbon Dioxide 22 Anion Gap 8 BUN 20 H Creatinine 1.6 H Creat Clearance w eGFR 43.20 Random Glucose 130 H Lactic Acid Calcium 7.9 L Magnesium Total Bilirubin 1.1 H AST 39 H ALT 28 Alkaline Phosphatase 90 Creatine Kinase Creatine Kinase Index CK-MB (CK-2) Troponin I Total Protein 5.6 L Albumin 2.7 L Total Amylase Lipase Carcinoembryonic Ag CA 19-9 Antigen Urine Color Urine Appearance Urine pH Ur Specific [place] Urine Protein Urine Glucose (UA) Urine Ketones Urine Blood Urine Nitrite Urine Bilirubin Urine Urobilinogen Ur Leukocyte Esterase Urine WBC (Auto) Urine RBC (Auto) Ur Epithelial Cells Urine Bacteria Urine Mucus Vancomycin Pre-Dose Influenza A (Rapid) Influenza B (Rapid) 11/13/18 11/14/18 11/14/18 06:30 06:00 06:00 WBC 14.8 H RBC 4.77 Hgb 13.8 Hct 40.0 MCV 83.9 MCH 29.0 MCHC 34.6 RDW 17.0 H Plt Count 179 D MPV 9.1 Absolute Neuts (auto) 11.9 H Neutrophils % 80.0 Neutrophils % (Manual) Band Neutrophils % Lymphocytes % 11.5 Lymphocytes % (Manual) Monocytes % 8.4 Monocytes % (Manual) Eosinophils % 0.0 D Eosinophils % (Manual) Basophils % 0.1 Basophils % (Manual) Myelocytes % (Man) Promyelocytes % (Man) Blast Cells % (Manual) Nucleated RBC % 0 Metamyelocytes Hypochromia Platelet Estimate Polychromasia Poikilocytosis Anisocytosis Microcytosis Macrocytosis PT with INR INR PTT (Actin FS) Sodium 141 141 Potassium 3.3 L 3.6 Chloride 109 H 109 H Carbon Dioxide 20 L 21 Anion Gap 11 11 BUN 13 17 Creatinine 1.1 1.2 Creat Clearance w eGFR > 60 > 60 Random Glucose 135 H 122 H Lactic Acid Calcium 8.2 L 8.4 L Magnesium Total Bilirubin 1.0 0.7 AST 60 H 36 ALT 45 48 Alkaline Phosphatase 104 104 Creatine Kinase Creatine Kinase Index CK-MB (CK-2) Troponin I Total Protein 6.0 L 6.5 Albumin 2.8 L 3.0 L Total Amylase Lipase Carcinoembryonic Ag CA 19-9 Antigen Urine Color Urine Appearance Urine pH Ur Specific [place] Urine Protein Urine Glucose (UA) Urine Ketones Urine Blood Urine Nitrite Urine Bilirubin Urine Urobilinogen Ur Leukocyte Esterase Urine WBC (Auto) Urine RBC (Auto) Ur Epithelial Cells Urine Bacteria Urine Mucus Vancomycin Pre-Dose Influenza A (Rapid) Influenza B (Rapid) 11/15/18 11/15/18 11/15/18 13:23 13:23 13:23 WBC RBC Hgb Hct MCV MCH MCHC RDW Plt Count MPV Absolute Neuts (auto) Neutrophils % Neutrophils % (Manual) Band Neutrophils % Lymphocytes % Lymphocytes % (Manual) Monocytes % Monocytes % (Manual) Eosinophils % Eosinophils % (Manual) Basophils % Basophils % (Manual) Myelocytes % (Man) Promyelocytes % (Man) Blast Cells % (Manual) Nucleated RBC % Metamyelocytes Hypochromia Platelet Estimate Polychromasia Poikilocytosis Anisocytosis Microcytosis Macrocytosis PT with INR INR PTT (Actin FS) Sodium Potassium Chloride Carbon Dioxide Anion Gap BUN Creatinine Creat Clearance w eGFR Random Glucose Lactic Acid Calcium Magnesium Total Bilirubin AST ALT Alkaline Phosphatase Creatine Kinase Creatine Kinase Index CK-MB (CK-2) Troponin I Total Protein Albumin Total Amylase Lipase Carcinoembryonic Ag 2.0 CA 19-9 Antigen 23 Urine Color Urine Appearance Urine pH Ur Specific [place] Urine Protein Urine Glucose (UA) Urine Ketones Urine Blood Urine Nitrite Urine Bilirubin Urine Urobilinogen Ur Leukocyte Esterase Urine WBC (Auto) Urine RBC (Auto) Ur Epithelial Cells Urine Bacteria Urine Mucus Vancomycin Pre-Dose 10.2 L Influenza A (Rapid) Influenza B (Rapid) 11/16/18 11/16/18 07:00 07:00 WBC 11.8 H RBC 4.50 Hgb 12.9 Hct 38.2 MCV 84.7 MCH 28.7 MCHC 33.8 RDW 17.3 H Plt Count 230 D MPV 8.3 Absolute Neuts (auto) 7.2 Neutrophils % 61.4 D Neutrophils % (Manual) 63.0 D Band Neutrophils % 0.0 Lymphocytes % 23.5 D Lymphocytes % (Manual) 20.0 D Monocytes % 11.2 H Monocytes % (Manual) 8 D Eosinophils % 3.3 D Eosinophils % (Manual) 4.0 D Basophils % 0.6 D Basophils % (Manual) 1.0 D Myelocytes % (Man) 0 Promyelocytes % (Man) 0 Blast Cells % (Manual) 0 Nucleated RBC % 0 Metamyelocytes 0 Hypochromia 0 Platelet Estimate Normal Polychromasia 0 Poikilocytosis 0 Anisocytosis 0 Microcytosis 0 Macrocytosis 0 PT with INR INR PTT (Actin FS) Sodium 141 Potassium 3.6 Chloride 108 H Carbon Dioxide 23 Anion Gap 10 BUN 11 Creatinine 0.9 Creat Clearance w eGFR > 60 Random Glucose 96 Lactic Acid Calcium 7.9 L Magnesium Total Bilirubin 0.8 AST 17 ALT 31 Alkaline Phosphatase 88 Creatine Kinase Creatine Kinase Index CK-MB (CK-2) Troponin I Total Protein 6.0 L Albumin 2.7 L Total Amylase Lipase Carcinoembryonic Ag CA 19-9 Antigen Urine Color Urine Appearance Urine pH Ur Specific [place] Urine Protein Urine Glucose (UA) Urine Ketones Urine Blood Urine Nitrite Urine Bilirubin Urine Urobilinogen Ur Leukocyte Esterase Urine WBC (Auto) Urine RBC (Auto) Ur Epithelial Cells Urine Bacteria Urine Mucus Vancomycin Pre-Dose Influenza A (Rapid) Influenza B (Rapid) Problem List - Problems (1) Fever Code(s): R50.9 - FEVER, UNSPECIFIED (2) Kidney stone Code(s): N20.0 - CALCULUS OF KIDNEY (3) Pancreatic mass Code(s): K86.9 - DISEASE OF PANCREAS, UNSPECIFIED (4) HTN (hypertension) Code(s): I10 - ESSENTIAL (PRIMARY) HYPERTENSION Assessment/Plan UTI/Obstructing renal stone s/p stent placement Gram Positive Bacteremia -- Zosyn d/c'd, continue Vancomycin. Still awaiting initial blood culture results -- repeat blood cultures no growth in 24hrs -- GI following for workup of pancreatic mass Pt afebrile, wbc trend downwards
--- NOTE | 2018-11-18 14:08 | CONSULT ---
Consult Consult Specialty:: Oncology Referred by:: Medicine Reason for Consultation:: Pancreatic mass - History of Present Illness Chief Complaint: Abdominal pain History of Present Illness: Patient admitted 1 week ago with fever and abdominal pain, attributed to pyelonephritiswith ureteral stone R, now doing better following cystoscopy, removal of stone, stent placement and antibiotics. CT revealed pancreatic mass, confirmed on MRI. Patient aware of mass - informs me it was extensively investigated on July 2018 at the [facility] in the [place], including biopsy, and he was informed it was benign. - History Source History Provided By: Patient, Medical Record - Past Medical History [employer]: Yes: CVA Cardio/Vascular: Yes: HTN Renal/: Yes: Renal Calculi - Past Surgical History Past Surgical History: Yes: Appendectomy, Cholecystectomy - Alcohol/Substance Use Hx Alcohol Use: No - Smoking History Smoking history: Current every day smoker Have you smoked in the past 12 months: No Aproximately how many cigarettes per day: 10 Home Medications - Allergies Allergies/Adverse Reactions: Allergies Allergy/AdvReac Type Severity Reaction Status Date / Time No Known Allergies Allergy Verified 11/09/18 07:17 - Home Medications Home Medications: Ambulatory Orders Amlodipine Besylate [Norvasc -] 10 mg PO DAILY 11/09/18 Diclofenac Potassium 50 mg PO ASDIR 11/09/18 Fluticasone Furoate [Children's Flonase Sensimist] 5.9 ml NS ASDIR 11/09/18 Loratadine 10 mg PO ASDIR 11/09/18 Omeprazole 20 mg PO ASDIR 11/09/18 Oxybutynin Chloride [Ditropan -] 5 mg PO DAILY 11/09/18 Selenium 25 mcg PO ASDIR 11/09/18 Tamsulosin HCl [Flomax] 0.4 mg PO DAILY #7 cap.er.24h 11/09/18 Tramadol HCl 50 mg PO BID #4 tablet MDD 2 11/09/18 Physical Exam Vital Signs: Vital Signs Temperature 98.0 F 11/18/18 07:14 Pulse Rate 75 11/18/18 07:14 Respiratory Rate 18 11/18/18 07:14 Blood Pressure 160/86 11/18/18 07:14 O2 Sat by Pulse Oximetry (%) 97 11/17/18 21:00 Constitutional: Yes: Well Nourished, No Distress Eyes: Yes: Conjunctiva Clear HENT: Yes: Atraumatic, Normocephalic Neck: Yes: Trachea Midline. No: Lymphadenopathy Cardiovascular: Yes: Regular Rate and Rhythm, S1, S2. No: Gallop, Murmur Respiratory: Yes: Regular, CTA Bilaterally Gastrointestinal: Yes: Normal Bowel Sounds, Soft. No: Hepatomegaly, Splenomegaly Extremities: No: Calf Tenderness Edema: No Peripheral Pulses WNL: Yes Integumentary: No: Petechiae, Rash Neurological: Yes: Alert, Oriented, Cran Nerves II-XII Intact. No: Confusion ...Motor Strength: WNL Psychiatric: Yes: Alert, Oriented Labs: CBC, BMP 11/16/18 07:00 11/16/18 07:00 Assessment/Plan Patient admitted with renal stone and urosepsis, now improved, with incidentally noted pancreatic mass. Patient provides a very clear history that this mass has been extensively investigated, and biopsied, within the last 3 months at the [facility]. Recommend obtaining records from the [place] prior to any further investigation of this mass. Kindly reconsult if current findings, as compared with findings in July at the [facility], suggest in any way progression, or any other reason to suspect that the prior evaluation of benign mass need be questioned.
[2018-11-18 18:55] VITALS: BMI 24.3
[2018-11-19] MEDS ORDERED: PT OWN MED DRAWER 7, Y5N ONE ×3 (01:06→23:56)
[2018-11-19] MEDS: VANCOMYCIN 1,250 MG in DEXTROSE 5%-WATER - 250 ML IVPB SCH ×3 (01:25→16:49)
--- NOTE | 2018-11-19 10:16 | PN ---
Progress Note, Physician Chief Complaint: pt lyin bed,pt feels better urosepsis S/p rt ureteral stent placement,cystoscopy,rt retrograde pyelogram afebrile Vitals stable gm positive bacteremia,rpt blood cul negative Pt is on IV fluid,antibiotics and pain meds MRI of abdomen with MRCP shows4.6x2.6 cm mass in Pancreatic body proximal tail with distal pacreatic atrophy and ductal dialation hihgly suspicious for neoplastic process some perjpancreatic lymphnode ,simple renal cyst oncology cosult apprecited,rec to get old records - Current Medication List Current Medications: Active Medications Acetaminophen (Tylenol -) 650 mg PO Q6H PRN PRN Reason: FEVER Last Admin: 11/15/18 14:55 Dose: 650 mg Vancomycin HCl 1,250 mg/ (Dextrose) 250 mls @ 166.667 mls/hr IVPB Q12H LOLIS; Protocol Last Admin: 11/19/18 01:25 Dose: 166.667 mls/hr Polyethylene Glycol (Miralax (For Daily Use) -) 17 gm PO DAILY PRN PRN Reason: CONSTIPATION - Objective Vital Signs: Vital Signs Temperature 97.7 F 11/19/18 08:55 Pulse Rate 68 11/19/18 08:55 Respiratory Rate 20 11/19/18 08:55 Blood Pressure 131/72 11/19/18 08:55 O2 Sat by Pulse Oximetry (%) 98 11/18/18 21:00 Constitutional: Yes: No Distress Eyes: Yes: Conjunctiva Clear HENT: Yes: Atraumatic Neck: Yes: Supple Cardiovascular: Yes: Regular Rate and Rhythm Respiratory: Yes: Regular, CTA Bilaterally Gastrointestinal: Yes: Normal Bowel Sounds Musculoskeletal: Yes: WNL Extremities: Yes: WNL Edema: No Peripheral Pulses WNL: Yes Neurological: Yes: WNL, Alert ...Motor Strength: WNL Psychiatric: Yes: WNL Labs: CBC, BMP 11/16/18 07:00 11/16/18 07:00 INR, PTT INR 1.38 (0.83-1.09) H 11/11/18 16:30 Assessment/Plan S/p cystoscopy,rt retrograde pyelogram,rt ureteral stent placement urosepsis Rt ureteric stone ,fever,UTI Leucocytosis coming down Pancreatic mass CEA2,[id number] 23 gm positive bacteremia HTN PLAN continue antibiotics,IV fluid and pain MEDS UROLOGY f/u ID f/u Gi f/u oncology f/u
--- NOTE | 2018-11-19 16:04 | PN ---
Progress Note, Physician History of Present Illness: Pt states he feels well. Occasional pain with urination, no hematuria, no lower abd pain. - Current Medication List Current Medications: Active Medications Acetaminophen (Tylenol -) 650 mg PO Q6H PRN PRN Reason: FEVER Last Admin: 11/15/18 14:55 Dose: 650 mg Vancomycin HCl 1,250 mg/ (Dextrose) 250 mls @ 166.667 mls/hr IVPB Q12H LOLIS; Protocol Last Admin: 11/19/18 14:54 Dose: Not Given Polyethylene Glycol (Miralax (For Daily Use) -) 17 gm PO DAILY PRN PRN Reason: CONSTIPATION - Objective Vital Signs: Vital Signs Temperature 97.8 F 11/19/18 14:20 Pulse Rate 69 11/19/18 14:20 Respiratory Rate 18 11/19/18 14:20 Blood Pressure 127/84 11/19/18 14:20 O2 Sat by Pulse Oximetry (%) 98 11/18/18 21:00 Constitutional: Yes: No Distress, Calm Cardiovascular: Yes: Regular Rate and Rhythm Respiratory: Yes: Regular Gastrointestinal: Yes: Normal Bowel Sounds, Soft Edema: No Integumentary: Yes: WNL Neurological: Yes: Alert, Oriented Labs: CBC, BMP 11/16/18 07:00 11/16/18 07:00 INR, PTT INR 1.38 (0.83-1.09) H 11/11/18 16:30 Microbiology 11/11/18 16:30 Blood - Peripheral Venous Blood Culture - Preliminary Staphylococcus Lugdunensis Staphylococcus Coagulase Neg 11/15/18 06:20 Blood - Peripheral Venous Blood Culture - Preliminary NO GROWTH OBTAINED AFTER 96 HOURS, INCUBATION TO CONTINUE FOR 1 DAYS. 11/15/18 06:15 Blood - Peripheral Venous Blood Culture - Preliminary NO GROWTH OBTAINED AFTER 96 HOURS, INCUBATION TO CONTINUE FOR 1 DAYS. 11/11/18 17:00 Blood - Peripheral Venous Blood Culture - Preliminary Gram Positive Cocci Gram Positive Cocci#2 11/13/18 13:03 Urine - Urine Clean Catch Urine Culture - Final NO GROWTH OBTAINED 11/11/18 17:10 Urine - Urine Clean Catch Urine Culture - Final Problem List - Problems (1) Fever Code(s): R50.9 - FEVER, UNSPECIFIED (2) Kidney stone Code(s): N20.0 - CALCULUS OF KIDNEY (3) Pancreatic mass Code(s): K86.9 - DISEASE OF PANCREAS, UNSPECIFIED (4) HTN (hypertension) Code(s): I10 - ESSENTIAL (PRIMARY) HYPERTENSION Assessment/Plan UTI/Pyelonephritis Obstructing renal stone s/p stent placement Gram Positive Bacteremia - Staph lugdunensis/Coag neg Staph isolated Pancreatic mass -- Continue Vancomycin IV -- suggest Echo -- repeat blood cultures no growth -- leukocytosis/fever resolved
[2018-11-20] MEDS: VANCOMYCIN 1,250 MG in DEXTROSE 5%-WATER - 250 ML IVPB SCH ×2 (01:11→23:18)
--- NOTE | 2018-11-20 11:10 | PN ---
Progress Note, Physician Chief Complaint: pt lyin bed,pt feels better urosepsis S/p rt ureteral stent placement,cystoscopy,rt retrograde pyelogram afebrile Vitals stable blood cul shows staph coagulase negative,rpt blood cul negative Pt is on IV fluid,antibiotics and pain meds MRI of abdomen shows pacreatic mass oncology cosult apprecited,rec to get old records - Current Medication List Current Medications: Active Medications Acetaminophen (Tylenol -) 650 mg PO Q6H PRN PRN Reason: FEVER Last Admin: 11/15/18 14:55 Dose: 650 mg Vancomycin HCl 1,250 mg/ (Dextrose) 250 mls @ 166.667 mls/hr IVPB Q12H LOLIS; Protocol Last Admin: 11/20/18 01:11 Dose: 166.667 mls/hr Polyethylene Glycol (Miralax (For Daily Use) -) 17 gm PO DAILY PRN PRN Reason: CONSTIPATION Last Admin: 11/20/18 10:19 Dose: 17 grams - Objective Vital Signs: Vital Signs Temperature 98.8 F 11/20/18 10:15 Pulse Rate 68 11/20/18 10:15 Respiratory Rate 18 11/20/18 10:15 Blood Pressure 141/84 11/20/18 10:15 O2 Sat by Pulse Oximetry (%) 98 11/19/18 21:00 Constitutional: Yes: No Distress Eyes: Yes: Conjunctiva Clear HENT: Yes: Atraumatic Neck: Yes: Supple, Trachea Midline Cardiovascular: Yes: Regular Rate and Rhythm Respiratory: Yes: Regular, CTA Bilaterally Gastrointestinal: Yes: Normal Bowel Sounds, Soft Musculoskeletal: Yes: WNL Extremities: Yes: WNL Edema: No Peripheral Pulses WNL: Yes Integumentary: Yes: WNL Neurological: Yes: WNL, Alert Psychiatric: Yes: WNL, Alert Labs: CBC, BMP 11/16/18 07:00 11/16/18 07:00 INR, PTT INR 1.38 (0.83-1.09) H 11/11/18 16:30 Assessment/Plan S/p cystoscopy,rt retrograde pyelogram,rt ureteral stent placement urosepsis Rt ureteric stone ,fever,UTI Leucocytosis coming down Pancreatic mass CEA2,[id number] 23 HTN PLAN continue antibiotics,IV fluid and pain MEDS UROLOGY f/u ID f/u Gi f/u oncology f/u awaiting from record from [facility]
--- NOTE | 2018-11-20 14:06 | PN ---
Progress Note, Physician History of Present Illness: patient stable no new issues - Current Medication List Current Medications: Active Medications Acetaminophen (Tylenol -) 650 mg PO Q6H PRN PRN Reason: FEVER Last Admin: 11/15/18 14:55 Dose: 650 mg Vancomycin HCl 1,250 mg/ (Dextrose) 250 mls @ 166.667 mls/hr IVPB Q12H LOLIS; Protocol Last Admin: 11/20/18 01:11 Dose: 166.667 mls/hr Polyethylene Glycol (Miralax (For Daily Use) -) 17 gm PO DAILY PRN PRN Reason: CONSTIPATION Last Admin: 11/20/18 10:19 Dose: 17 grams - Objective Vital Signs: Vital Signs Temperature 98.8 F 11/20/18 10:15 Pulse Rate 68 11/20/18 10:15 Respiratory Rate 18 11/20/18 10:15 Blood Pressure 141/84 11/20/18 10:15 O2 Sat by Pulse Oximetry (%) 98 11/20/18 10:15 Constitutional: Yes: No Distress, Calm Cardiovascular: Yes: Regular Rate and Rhythm Respiratory: Yes: Regular, CTA Bilaterally Gastrointestinal: Yes: Normal Bowel Sounds, Soft Musculoskeletal: Yes: WNL Extremities: Yes: WNL Neurological: Yes: Alert, Oriented Psychiatric: Yes: Alert, Oriented Labs: CBC, BMP 11/16/18 07:00 11/16/18 07:00 INR, PTT INR 1.38 (0.83-1.09) H 11/11/18 16:30 Assessment/Plan uti renal stone gm positive bactermia pancreatic mass rt pyelo plan continue vanco will check vanco trough will need vanco for another 10 more days rest as per the team
[2018-11-20] MEDS ORDERED: VANCOMYCIN 1 GRAM (PRE-DOCKED) 1,000 MG/250 ML BAG IVPB SCH (17:00)
--- NOTE | 2018-11-20 19:38 | PN ---
Progress Note (short form) - Note Progress Note: Patient seen and examined no c/o Last Vital Signs Temp Pulse Resp BP Pulse Ox 97.9 F 83 18 120/86 98 11/20/18 14:57 11/20/18 14:57 11/20/18 14:57 11/20/18 14:57 11/20/18 10:15 Cor: RSR, No murmurs, No gallops Lungs: Clear to P&A Abd: Soft, Normal bowel sounds, No organomegaly Ext:No significant edema Labs/Meds reviewed A/P 68 y/o with pancreatic body/proximal tail 4.4cm mass, with distal atrophy and ductal dilatation on MRCP suspicious for neoplasm. Will need EUS CA 19.9 normal reports had bx at [place] in 08/17--? benign --team was planning on repeat bx will need records from [place] will need repat w/u for mass--EUS/biopsy will need f/u at [facility] with Dr. Mcqueen
[2018-11-21] MEDS ORDERED: VANCOMYCIN 1,250 MG in DEXTROSE 5%-WATER - 250 ML IVPB SCH (05:00)
[2018-11-21 08:14] LABS: BASO % 0.8 % (0-2.0); EOS % 2.9 % (0-4.5); HEMATOCRIT 36.5 % (35.4-49); HEMOGLOBIN 12.2 GM/dL (11.7-16.9); LYMPH % 16.3 % (8-40); MCH 28.4 pg (25.7-33.7); MCHC 33.5 g/dl (32.0-35.9); MEAN CELL VOLUME 84.6 fl (80-96); MONO % 5.5 % (3.8-10.2); NEUT % 74.5 % (42.8-82.8); PLATELET COUNT 353 K/MM3 (134-434); RBC 4.32 M/mm3 (4.00-5.60); RDW 17.2 % (11.9-15.9); WHITE BLOOD COUNT 14.4 K/mm3 (4.0-10.0)
[2018-11-21 08:38] LABS: ALK PHOS 81 U/L (45-117); ANION GAP 9 MMOL/L (8-16); BILIRUBIN,TOTAL 0.4 mg/dL (0.2-1); BLOOD UREA NITROGEN 18 mg/dL (7-18); CALCIUM 8.6 mg/dL (8.5-10.1); CHLORIDE 106 mmol/L (98-107); CO2 23 mmol/L (21-32); GLUCOSE,RANDOM 114 mg/dL (74-106); POTASSIUM 4.4 mmol/L (3.5-5.1); SGOT/AST 15 U/L (15-37); SGPT/ALT 26 U/L (13-61); SODIUM 138 mmol/L (136-145); TOT PROT 6.4 g/dl (6.4-8.2)
--- NOTE | 2018-11-21 10:04 | PN ---
Progress Note, Physician Chief Complaint: pt resting comfortably afebrile, pt is on IV antibiotics oncology nte appreciated blood cul on 11/11/18 shows stapkemar lugdonesis - Current Medication List Current Medications: Active Medications Acetaminophen (Tylenol -) 650 mg PO Q6H PRN PRN Reason: FEVER Last Admin: 11/15/18 14:55 Dose: 650 mg Vancomycin HCl (Vancomycin (Pre-Docked)) 1,000 mg in 250 mls @ 166.667 mls/hr IVPB DAILY@1700 [facility] Last Admin: 11/20/18 18:00 Dose: 166.667 mls/hr Vancomycin HCl 1,250 mg/ (Dextrose) 250 mls @ 166.667 mls/hr IVPB DAILY@0500 [facility] Last Admin: 11/21/18 05:07 Dose: 166.667 mls/hr Polyethylene Glycol (Miralax (For Daily Use) -) 17 gm PO DAILY PRN PRN Reason: CONSTIPATION Last Admin: 11/20/18 10:19 Dose: 17 grams - Objective Vital Signs: Vital Signs Temperature 97.9 F 11/21/18 08:45 Pulse Rate 60 11/21/18 08:45 Respiratory Rate 20 11/21/18 08:45 Blood Pressure 157/92 11/21/18 08:45 O2 Sat by Pulse Oximetry (%) 98 11/20/18 21:00 Constitutional: Yes: No Distress Eyes: Yes: Conjunctiva Clear HENT: Yes: Atraumatic Neck: Yes: Supple Cardiovascular: Yes: Regular Rate and Rhythm Respiratory: Yes: Regular, CTA Bilaterally Gastrointestinal: Yes: Normal Bowel Sounds, Soft Genitourinary: Yes: WNL Musculoskeletal: Yes: WNL Extremities: Yes: WNL Edema: No Peripheral Pulses WNL: Yes Neurological: Yes: WNL, Alert ...Motor Strength: WNL Psychiatric: Yes: WNL Labs: CBC, BMP 11/21/18 06:45 11/21/18 06:45 INR, PTT INR 1.38 (0.83-1.09) H 11/11/18 16:30 Assessment/Plan CYSTOSCOPy,ureteric stent placement Rt ureteric stone ,fever,UTI Leucocytosis Pancreatic mass HTN PLAN continue iv antibiotics ID f/u Awaiting for records from [facility] regarding pancreatic mass biopsy report
[2018-11-21] MEDS ORDERED: VANCOMYCIN 1,000 MG in DEXTROSE 5%-WATER - 250 ML IVPB SCH (12:58)
--- NOTE | 2018-11-21 13:01 | PN ---
Progress Note, Physician History of Present Illness: patient stable no new issues - Current Medication List Current Medications: Active Medications Acetaminophen (Tylenol -) 650 mg PO Q6H PRN PRN Reason: FEVER Last Admin: 11/15/18 14:55 Dose: 650 mg Vancomycin HCl (Vancomycin (Pre-Docked)) 1,000 mg in 250 mls @ 166.667 mls/hr IVPB DAILY@1700 [facility] Last Admin: 11/20/18 18:00 Dose: 166.667 mls/hr Vancomycin HCl 1,250 mg/ (Dextrose) 250 mls @ 166.667 mls/hr IVPB DAILY@0500 [facility] Last Admin: 11/21/18 05:07 Dose: 166.667 mls/hr Polyethylene Glycol (Miralax (For Daily Use) -) 17 gm PO DAILY PRN PRN Reason: CONSTIPATION Last Admin: 11/20/18 10:19 Dose: 17 grams - Objective Vital Signs: Vital Signs Temperature 97.9 F 11/21/18 08:45 Pulse Rate 60 11/21/18 08:45 Respiratory Rate 20 11/21/18 08:45 Blood Pressure 157/92 11/21/18 08:45 O2 Sat by Pulse Oximetry (%) 98 11/20/18 21:00 Constitutional: Yes: No Distress, Calm Cardiovascular: Yes: Regular Rate and Rhythm Respiratory: Yes: Regular, CTA Bilaterally Gastrointestinal: Yes: Normal Bowel Sounds, Soft Musculoskeletal: Yes: WNL Extremities: Yes: WNL Neurological: Yes: Alert, Oriented Psychiatric: Yes: Alert, Oriented Labs: CBC, BMP 11/21/18 06:45 11/21/18 06:45 INR, PTT INR 1.38 (0.83-1.09) H 11/11/18 16:30 Assessment/Plan uti renal stone gm positive bactermia pancreatic mass rt pyelo vanco trough noted abx adjusted patient needs another 9 days of vanco spoke to family rest as per the team
--- NOTE | 2018-11-21 15:31 | PN ---
GI Progress Note Subjective: Patient states feeling better. Denies abdominal pain, nausea, vomiting. Denies diarrhea, rectal bleeding. - Objective Vital Signs: Vital Signs Temperature 97.9 F 11/21/18 08:45 Pulse Rate 60 11/21/18 08:45 Respiratory Rate 20 11/21/18 08:45 Blood Pressure 157/92 11/21/18 08:45 O2 Sat by Pulse Oximetry (%) 98 11/20/18 21:00 Constitutional: No Distress, Calm Eyes: Yes: Conjunctiva Clear Neck: Yes: Supple Cardiovascular: Yes: Regular Rate and Rhythm Respiratory: Yes: Regular, CTA Bilaterally Gastrointestinal Inspection: No: WNL, Ascites, Distention, Hernia, Scars, Other ...Auscultate: Yes: Normoactive Bowel Sounds ...Palpate: Yes: Soft. No: Firm/Rigid, Guarding, Hepatomegaly, Mass, Pulsatile Mass, Splenomegaly, Tenderness, Tenderness, Epigastium, Tenderness, Rebound, Other ...Percussion: Yes: Tympanitic. No: Dullness, Fluid Wave, Other Labs: CBC, BMP 11/21/18 06:45 11/21/18 06:45 INR, PTT INR 1.38 (0.83-1.09) H 11/11/18 16:30 Home Medication List Medication Instructions Recorded Confirmed Type Amlodipine Besylate [Norvasc -] 10 mg PO DAILY 11/09/18 11/11/18 History Diclofenac Potassium 50 mg PO ASDIR 11/09/18 11/11/18 History Fluticasone Furoate [Children's 5.9 ml NS ASDIR 11/09/18 11/11/18 History Flonase Sensimist] Loratadine 10 mg PO ASDIR 11/09/18 11/11/18 History Omeprazole 20 mg PO ASDIR 11/09/18 11/11/18 History Oxybutynin Chloride [Ditropan -] 5 mg PO DAILY 11/09/18 11/11/18 History Selenium 25 mcg PO ASDIR 11/09/18 11/11/18 History Active Medications Generic Name Dose Route Start Last Admin Trade Name Freq PRN Reason Stop Dose Admin Acetaminophen 650 mg 11/13/18 11:36 11/15/18 14:55 Tylenol - PO 650 mg Q6H PRN Administration FEVER Vancomycin HCl 1,000 mg in 250 mls @ 166.667 mls/hr 11/22/18 05:00 Vancomycin (Pre-Docked) IVPB Q12H [facility] Protocol Polyethylene Glycol 17 gm 11/15/18 10:24 11/20/18 10:19 Miralax (For Daily Use) - PO 17 grams DAILY PRN Administration CONSTIPATION Problem List - Problems (1) Pancreatic mass Assessment/Plan: -CA 19-9 and CEA wnl -need to follow up with GI as outpatient for further workup and to schedule EUS/ biopsy -from GI standpoint patient is clear for discharge Code(s): K86.9 - DISEASE OF PANCREAS, UNSPECIFIED
[2018-11-22] MEDS: VANCOMYCIN 1 GRAM (PRE-DOCKED) 1,000 MG/250 ML BAG IVPB SCH ×2 (04:22→18:29)
--- NOTE | 2018-11-22 08:24 | PN ---
Progress Note, Physician Chief Complaint: pt resting comfortably afebrile, GI and ID note appreciated GI rec Out patient W/U for Pancreatic mass pt is on IV antibiotics oncology nte appreciated blood cul on 11/11/18 shows staph lugdonesis as per Id pt needs 9 more days of IV antibiotics - Current Medication List Current Medications: Active Medications Acetaminophen (Tylenol -) 650 mg PO Q6H PRN PRN Reason: FEVER Last Admin: 11/15/18 14:55 Dose: 650 mg Vancomycin HCl (Vancomycin (Pre-Docked)) 1,000 mg in 250 mls @ 166.667 mls/hr IVPB Q12H [facility]; Protocol Last Admin: 11/22/18 04:22 Dose: 166.667 mls/hr Polyethylene Glycol (Miralax (For Daily Use) -) 17 gm PO DAILY PRN PRN Reason: CONSTIPATION Last Admin: 11/20/18 10:19 Dose: 17 grams - Objective Vital Signs: Vital Signs Temperature 98.4 F 11/22/18 06:00 Pulse Rate 78 11/22/18 06:00 Respiratory Rate 11/22/18 06:00 Blood Pressure 145/75 11/22/18 06:00 O2 Sat by Pulse Oximetry (%) 100 11/21/18 21:00 Constitutional: Yes: No Distress Eyes: Yes: Conjunctiva Clear HENT: Yes: Atraumatic Neck: Yes: Supple Cardiovascular: Yes: Regular Rate and Rhythm Respiratory: Yes: Regular Gastrointestinal: Yes: Normal Bowel Sounds, Soft Musculoskeletal: Yes: WNL Extremities: Yes: WNL Edema: No Peripheral Pulses WNL: Yes Neurological: Yes: WNL, Alert ...Motor Strength: WNL Labs: CBC, BMP 11/21/18 06:45 11/21/18 06:45 INR, PTT INR 1.38 (0.83-1.09) H 11/11/18 16:30 Assessment/Plan CYSTOSCOPy,ureteric stent placement Rt ureteric stone ,fever,UTI Leucocytosis Pancreatic mass HTN PLAN continue iv antibiotics awaiting PICC line ID f/u Awaiting for records from [facility] regarding pancreatic mass biopsy report As per GI and Oncology w/u for Pacreatic mass as OUTPATIENT
--- NOTE | 2018-11-22 11:12 | PN ---
Progress Note, Physician - Current Medication List Current Medications: Active Medications Acetaminophen (Tylenol -) 650 mg PO Q6H PRN PRN Reason: FEVER Last Admin: 11/15/18 14:55 Dose: 650 mg Vancomycin HCl (Vancomycin (Pre-Docked)) 1,000 mg in 250 mls @ 166.667 mls/hr IVPB Q12H [facility]; Protocol Last Admin: 11/22/18 04:22 Dose: 166.667 mls/hr Polyethylene Glycol (Miralax (For Daily Use) -) 17 gm PO DAILY PRN PRN Reason: CONSTIPATION Last Admin: 11/20/18 10:19 Dose: 17 grams - Objective Vital Signs: Vital Signs Temperature 98.2 F 11/22/18 09:22 Pulse Rate 66 11/22/18 09:22 Respiratory Rate 19 11/22/18 09:22 Blood Pressure 141/83 11/22/18 09:22 O2 Sat by Pulse Oximetry (%) 100 11/21/18 21:00 Labs: CBC, BMP 11/21/18 06:45 11/21/18 06:45 INR, PTT INR 1.38 (0.83-1.09) H 11/11/18 16:30
[2018-11-22] MEDS: ACETAMINOPHEN 325 MG TABLET (FP) PO PRN (22:30)
[2018-11-23] MEDS: LOPERAMIDE HCL 2 MG CAPSULE PO PRN ×2 (00:57→10:52)
[2018-11-23] MEDS: VANCOMYCIN 1 GRAM (PRE-DOCKED) 1,000 MG/250 ML BAG IVPB SCH (05:29)
[2018-11-23 07:29] LABS: BASO % 0.5 % (0-2.0); EOS % 2.2 % (0-4.5); HEMATOCRIT 37.1 % (35.4-49); HEMOGLOBIN 12.5 GM/dL (11.7-16.9); LYMPH % 14.2 % (8-40); MCH 28.7 pg (25.7-33.7); MCHC 33.8 g/dl (32.0-35.9); MEAN CELL VOLUME 84.8 fl (80-96); MEAN PLT VOLUME 8.2 fl (7.5-11.1); NEUT % 77.1 % (42.8-82.8); PLATELET COUNT 333 K/MM3 (134-434); RBC 4.38 M/mm3 (4.00-5.60); RDW 16.7 % (11.9-15.9); WHITE BLOOD COUNT 15.5 K/mm3 (4.0-10.0)
[2018-11-23 07:58] LABS: ALBUMIN 3.1 g/dl (3.4-5.0); ALK PHOS 86 U/L (45-117); ANION GAP 6 MMOL/L (8-16); BILIRUBIN,TOTAL 0.6 mg/dL (0.2-1); BLOOD UREA NITROGEN 15 mg/dL (7-18); CALCIUM 8.4 mg/dL (8.5-10.1); CHLORIDE 105 mmol/L (98-107); CO2 26 mmol/L (21-32); CREATININE 1.2 mg/dL (0.55-1.3); GLUCOSE,RANDOM 112 mg/dL (74-106); POTASSIUM 4.6 mmol/L (3.5-5.1); SGOT/AST 17 U/L (15-37); SGPT/ALT 28 U/L (13-61); SODIUM 137 mmol/L (136-145); TOT PROT 6.6 g/dl (6.4-8.2)
--- NOTE | 2018-11-23 10:00 | PN ---
Progress Note, Physician Chief Complaint: pt resting comfortably afebrile, GI and ID note appreciated GI rec Out patient W/U for Pancreatic mass pt is on IV antibiotics oncology nte appreciated blood cul on 11/11/18 shows staph lugdunesis as per Id pt needs 9 more days of IV antibiotics d/c home on Vancomycin d/c home after PICC line - Current Medication List Current Medications: Active Medications Acetaminophen (Tylenol -) 650 mg PO Q6H PRN PRN Reason: FEVER Last Admin: 11/22/18 22:30 Dose: 650 mg Vancomycin HCl (Vancomycin (Pre-Docked)) 1,000 mg in 250 mls @ 166.667 mls/hr IVPB Q12H [facility]; Protocol Last Admin: 11/23/18 05:29 Dose: 166.667 mls/hr Loperamide HCl (Imodium -) 4 mg PO Q6H PRN PRN Reason: DIARRHEA Last Admin: 11/23/18 00:57 Dose: 4 mg - Objective Vital Signs: Vital Signs Temperature 98.3 F 11/23/18 06:00 Pulse Rate 63 11/23/18 06:00 Respiratory Rate 20 11/23/18 06:00 Blood Pressure 132/79 11/23/18 06:00 O2 Sat by Pulse Oximetry (%) 99 11/22/18 21:00 Constitutional: Yes: No Distress Eyes: Yes: Conjunctiva Clear HENT: Yes: Atraumatic Neck: Yes: Supple Cardiovascular: Yes: Regular Rate and Rhythm Respiratory: Yes: Regular, CTA Bilaterally Gastrointestinal: Yes: Normal Bowel Sounds Musculoskeletal: Yes: WNL Extremities: Yes: WNL Edema: No Peripheral Pulses WNL: Yes Neurological: Yes: WNL ...Motor Strength: WNL Psychiatric: Yes: WNL Labs: CBC, BMP 11/23/18 06:00 11/23/18 06:00 INR, PTT INR 1.38 (0.83-1.09) H 11/11/18 16:30 Assessment/Plan CYSTOSCOPy,ureteric stent placement Rt ureteric stone ,fever,UTI Leucocytosis Pancreatic mass HTN PLAN continue iv antibiotics Vancomycin igm IV BID for 9 days awaiting PICC line ID f/u Awaiting for records from [facility] regarding pancreatic mass biopsy report As per GI and Oncology w/u for Pacreatic mass as OUTPATIENT d/c home after PICC line F/u with PMD in ![facility]
[2018-11-23 11:01] VITALS: TEMP 97.9
--- NOTE | 2018-11-23 14:06 | PN ---
Progress Note, Physician - Current Medication List Current Medications: Active Medications Acetaminophen (Tylenol -) 650 mg PO Q6H PRN PRN Reason: FEVER Last Admin: 11/22/18 22:30 Dose: 650 mg Vancomycin HCl (Vancomycin (Pre-Docked)) 1,000 mg in 250 mls @ 166.667 mls/hr IVPB Q12H [facility]; Protocol Last Admin: 11/23/18 05:29 Dose: 166.667 mls/hr Loperamide HCl (Imodium -) 4 mg PO Q6H PRN PRN Reason: DIARRHEA Last Admin: 11/23/18 10:52 Dose: 4 mg - Objective Vital Signs: Vital Signs Temperature 97.9 F 11/23/18 10:00 Pulse Rate 80 11/23/18 10:00 Respiratory Rate 17 11/23/18 10:00 Blood Pressure 126/73 11/23/18 10:00 O2 Sat by Pulse Oximetry (%) 99 11/23/18 10:00 Labs: CBC, BMP 11/23/18 06:00 11/23/18 06:00 INR, PTT INR 1.38 (0.83-1.09) H 11/11/18 16:30
[2018-11-23] MEDS ORDERED: VANCOMYCIN 1 GRAM (PRE-DOCKED) 1,000 MG/250 ML BAG IVPB ONE (14:09)
[2018-11-23 15:12] VITALS: BP 107/78; PULSE 73
== END 2018-11-23 16:26 | disposition home or self-care (01) | DRG 660 ==
LOC: JER 15:29 → JERBED 18:03 → J5S 23:58
PROVIDERS: ADMIT Internal Medicine; ATTEND Internal Medicine
PROC: 0T768DZ Dilation of Right Ureter with Intraluminal Device, Via Natural or Artificial Opening Endoscopic (ICD-10-PCS; principal; 2018-11-13 10:00)
PROC: BT1DZZZ Fluoroscopy of Right Kidney, Ureter and Bladder (ICD-10-PCS; 2018-11-13 10:00)
PROC: 05H933Z Insertion of Infusion Device into Right Brachial Vein, Percutaneous Approach (ICD-10-PCS; 2018-11-23)
PROC: B51MZZA Fluoroscopy of Right Upper Extremity Veins, Guidance (ICD-10-PCS; 2018-11-23)
PROC: B54MZZA Ultrasonography of Right Upper Extremity Veins, Guidance (ICD-10-PCS; 2018-11-23)
DX: N13.2 Hydronephrosis with renal and ureteral calculous obstruction (principal); R78.81 Bacteremia; N17.9 Acute kidney failure, unspecified; N39.0 Urinary tract infection, site not specified; K86.89 Other specified diseases of pancreas; I10 Essential (primary) hypertension; N28.1 Cyst of kidney, acquired; Z86.73 Personal history of transient ischemic attack (TIA), and cerebral infarction without residual deficits; B95.7 Other staphylococcus as the cause of diseases classified elsewhere; K59.00 Constipation, unspecified
CPT/HCPCS: 36415; 36569; 70450-TC; 71045-TC-FY; 74182-TC; 77001-TC-FY; 80053; 81003; 81015; 82150; 82378; 82550; 82553; 83605; 83690; 84484; 85025; 85610; 85730; 86301; 87040; 87045; 87046; 87086; 87177; 87186; 87209; 87804; 93005; 93010; 94760; 97116-GP; 97161-GP; 99285-25; C1751; G0480; J0131; J7030

== ENCOUNTER 2018-11-24 07:13 | Day surgery (SDC) | payer OTHER, BC ==
[2018-11-24 07:54] LABS: HEMOGLOBIN 13.2 GM/dL (11.7-16.9); MCH 29.6 pg (25.7-33.7); MCHC 34.7 g/dl (32.0-35.9); MEAN CELL VOLUME 85.3 fl (80-96); MEAN PLT VOLUME 8.2 fl (7.5-11.1); PLATELET COUNT 352 K/MM3 (134-434); RBC 4.46 M/mm3 (4.00-5.60); RDW 16.6 % (11.9-15.9); WHITE BLOOD COUNT 12.6 K/mm3 (4.0-10.0)
[2018-11-24 08:08] VITALS: TEMP 98.5
[2018-11-24] MEDS ORDERED: VANCOMYCIN 2,000 MG in DEXTROSE 5%-WATER - 500 ML IVPB ONE (08:45)
[2018-11-24 08:51] LABS: ANION GAP 9 MMOL/L (8-16); BLOOD UREA NITROGEN 17 mg/dL (7-18); CALCIUM 8.9 mg/dL (8.5-10.1); CHLORIDE 107 mmol/L (98-107); CO2 24 mmol/L (21-32); CREATININE 1.5 mg/dL (0.55-1.3); GLUCOSE,RANDOM 148 mg/dL (74-106); POTASSIUM 4.3 mmol/L (3.5-5.1); SODIUM 140 mmol/L (136-145)
[2018-11-24 11:39] VITALS: BP 118/58; PULSE 62
== END 2018-11-24 11:39 | disposition home or self-care (01) ==
LOC: JINFUSION 07:13
PROVIDERS: ATTEND Internal Medicine Infectious Disease
DX: N39.0 Urinary tract infection, site not specified (principal); R78.81 Bacteremia; B95.7 Other staphylococcus as the cause of diseases classified elsewhere
CPT/HCPCS: 36415; 80048; 85027; 96365; 96366; G0480

== ENCOUNTER 2018-11-25 08:28 | Day surgery (SDC) | payer OTHER, BC ==
[2018-11-25] MEDS ORDERED: VANCOMYCIN 2,000 MG in DEXTROSE 5%-WATER - 500 ML IVPB ONE (10:00)
[2018-11-25 10:43] LABS: BASO % 0.9 % (0-2.0); EOS % 1.9 % (0-4.5); HEMATOCRIT 36.4 % (35.4-49); HEMOGLOBIN 12.4 GM/dL (11.7-16.9); LYMPH % 19.3 % (8-40); MCH 29.3 pg (25.7-33.7); MCHC 34.1 g/dl (32.0-35.9); MEAN CELL VOLUME 85.9 fl (80-96); MEAN PLT VOLUME 8.1 fl (7.5-11.1); MONO % 7.1 % (3.8-10.2); NEUT % 70.8 % (42.8-82.8); PLATELET COUNT 332 K/MM3 (134-434); RBC 4.24 M/mm3 (4.00-5.60); RDW 16.6 % (11.9-15.9); WHITE BLOOD COUNT 12.1 K/mm3 (4.0-10.0)
[2018-11-25 11:16] LABS: ANION GAP 5 MMOL/L (8-16); BLOOD UREA NITROGEN 13 mg/dL (7-18); CALCIUM 8.8 mg/dL (8.5-10.1); CHLORIDE 105 mmol/L (98-107); CO2 28 mmol/L (21-32); CREATININE 1.4 mg/dL (0.55-1.3); GLUCOSE,RANDOM 108 mg/dL (74-106); POTASSIUM 4.9 mmol/L (3.5-5.1); SODIUM 138 mmol/L (136-145)
[2018-11-25 14:00] VITALS: TEMP 98.8
[2018-11-25 16:10] VITALS: BP 115/72; PULSE 69
== END 2018-11-25 19:00 | disposition home or self-care (01) ==
LOC: JINFUSION 08:28 → J7W 08:29 → JINFUSION 19:00
PROVIDERS: ATTEND Internal Medicine Infectious Disease
DX: N39.0 Urinary tract infection, site not specified (principal); R78.81 Bacteremia; B95.7 Other staphylococcus as the cause of diseases classified elsewhere
CPT/HCPCS: 36415; 80048; 85025; 96365; 96366; G0480

== ENCOUNTER 2018-11-26 07:56 | Day surgery (SDC) | payer OTHER, BC ==
[2018-11-26] MEDS ORDERED: VANCOMYCIN 2,000 MG in DEXTROSE 5%-WATER - 500 ML IVPB ONE (10:00)
[2018-11-26 11:02] VITALS: TEMP 97.8
[2018-11-26 13:38] VITALS: BP 118/77; PULSE 59
== END 2018-11-26 13:49 | disposition home or self-care (01) ==
LOC: JINFUSION 07:56 → J7W 07:57 → JINFUSION 13:48
PROVIDERS: ATTEND Internal Medicine Infectious Disease
DX: N39.0 Urinary tract infection, site not specified (principal); R78.81 Bacteremia; B95.7 Other staphylococcus as the cause of diseases classified elsewhere
CPT/HCPCS: 96365; 96366

== ENCOUNTER 2018-11-27 07:34 | Day surgery (SDC) | payer OTHER, BC ==
[2018-11-27 08:13] LABS: HEMOGLOBIN 12.5 GM/dL (11.7-16.9); MCH 29.7 pg (25.7-33.7); MCHC 34.8 g/dl (32.0-35.9); MEAN CELL VOLUME 85.3 fl (80-96); PLATELET COUNT 322 K/MM3 (134-434); RBC 4.22 M/mm3 (4.00-5.60); RDW 16.2 % (11.9-15.9); WHITE BLOOD COUNT 9.4 K/mm3 (4.0-10.0)
[2018-11-27 08:30] LABS: ANION GAP 6 MMOL/L (8-16); BLOOD UREA NITROGEN 12 mg/dL (7-18); CALCIUM 8.7 mg/dL (8.5-10.1); CHLORIDE 106 mmol/L (98-107); CO2 26 mmol/L (21-32); CREATININE 1.5 mg/dL (0.55-1.3); GLUCOSE,RANDOM 107 mg/dL (74-106); SODIUM 139 mmol/L (136-145)
[2018-11-27] MEDS ORDERED: VANCOMYCIN HCL 1,500 MG in DEXTROSE 5%-WATER - 500 ML IVPB ONE (08:30)
[2018-11-27 10:03] VITALS: TEMP 98.9
[2018-11-27 11:51] VITALS: BP 101/76; PULSE 64
== END 2018-11-27 11:53 | disposition home or self-care (01) ==
LOC: JINFUSION 07:34
PROVIDERS: ATTEND Internal Medicine Infectious Disease
DX: N39.0 Urinary tract infection, site not specified (principal); R78.81 Bacteremia; B95.7 Other staphylococcus as the cause of diseases classified elsewhere
CPT/HCPCS: 36415; 80048; 85027; 96365; 96366; G0480

== ENCOUNTER 2018-11-28 07:48 | Day surgery (SDC) | payer OTHER, BC ==
[2018-11-28] MEDS ORDERED: VANCOMYCIN HCL 1,500 MG in DEXTROSE 5%-WATER - 500 ML IVPB ONE (08:45)
[2018-11-28 09:22] VITALS: TEMP 97.9
[2018-11-28 11:35] VITALS: BP 127/74; PULSE 78
== END 2018-11-28 11:35 | disposition home or self-care (01) ==
LOC: JINFUSION 07:48
PROVIDERS: ATTEND Internal Medicine Infectious Disease
DX: N39.0 Urinary tract infection, site not specified (principal); R78.81 Bacteremia; B95.7 Other staphylococcus as the cause of diseases classified elsewhere
CPT/HCPCS: 96365; 96366

== ENCOUNTER 2018-11-29 07:19 | Day surgery (SDC) | payer OTHER, BC ==
[2018-11-29] MEDS ORDERED: VANCOMYCIN HCL 1,500 MG in DEXTROSE 5%-WATER - 500 ML IVPB ONE (08:00)
[2018-11-29 08:05] VITALS: TEMP 97.5
[2018-11-29 12:32] VITALS: BP 102/70; PULSE 69
== END 2018-11-29 10:50 | disposition home or self-care (01) ==
LOC: JINFUSION 07:19
PROVIDERS: ATTEND Internal Medicine Infectious Disease
DX: N39.0 Urinary tract infection, site not specified (principal); R78.81 Bacteremia; B95.7 Other staphylococcus as the cause of diseases classified elsewhere
CPT/HCPCS: 96365; 96366

== ENCOUNTER 2018-11-30 07:13 | Day surgery (SDC) | payer OTHER, BC ==
[2018-11-30 07:41] LABS: HEMATOCRIT 37.4 % (35.4-49); HEMOGLOBIN 12.5 GM/dL (11.7-16.9); MCH 28.6 pg (25.7-33.7); MCHC 33.3 g/dl (32.0-35.9); MEAN CELL VOLUME 85.8 fl (80-96); PLATELET COUNT 302 K/MM3 (134-434); RBC 4.36 M/mm3 (4.00-5.60); RDW 16.5 % (11.9-15.9); WHITE BLOOD COUNT 13.6 K/mm3 (4.0-10.0)
[2018-11-30 08:07] LABS: ALBUMIN 3.4 g/dl (3.4-5.0); ALK PHOS 82 U/L (45-117); ANION GAP 9 MMOL/L (8-16); BILIRUBIN,TOTAL 0.5 mg/dL (0.2-1); BLOOD UREA NITROGEN 11 mg/dL (7-18); CALCIUM 8.7 mg/dL (8.5-10.1); CHLORIDE 109 mmol/L (98-107); CO2 23 mmol/L (21-32); CREATININE 1.3 mg/dL (0.55-1.3); GLUCOSE,RANDOM 117 mg/dL (74-106); POTASSIUM 3.9 mmol/L (3.5-5.1); SGOT/AST 13 U/L (15-37); SGPT/ALT 17 U/L (13-61); SODIUM 141 mmol/L (136-145); TOT PROT 7.4 g/dl (6.4-8.2)
[2018-11-30] MEDS ORDERED: VANCOMYCIN HCL 1,500 MG in DEXTROSE 5%-WATER - 500 ML IVPB ONE (09:15)
[2018-11-30 09:45] VITALS: TEMP 98.2
[2018-11-30 12:33] VITALS: BP 123/69; PULSE 72
== END 2018-11-30 12:00 | disposition home or self-care (01) ==
LOC: JINFUSION 07:13
PROVIDERS: ATTEND Internal Medicine Infectious Disease
DX: N39.0 Urinary tract infection, site not specified (principal); B95.7 Other staphylococcus as the cause of diseases classified elsewhere; R78.81 Bacteremia
CPT/HCPCS: 36415; 80053; 85027; 96365; 96366; G0480

== ENCOUNTER 2018-12-01 07:05 | Day surgery (SDC) | payer OTHER, BC ==
[2018-12-01] MEDS ORDERED: VANCOMYCIN HCL 1,500 MG in DEXTROSE 5%-WATER - 500 ML IVPB ONE (09:00)
[2018-12-01 09:24] VITALS: TEMP 97.7
[2018-12-01 12:44] VITALS: BP 130/82; PULSE 74
== END 2018-12-01 12:38 | disposition home or self-care (01) ==
LOC: JINFUSION 07:05
PROVIDERS: ATTEND Internal Medicine Infectious Disease
DX: N39.0 Urinary tract infection, site not specified (principal); R78.81 Bacteremia; B95.7 Other staphylococcus as the cause of diseases classified elsewhere
CPT/HCPCS: 96365; 96366

== ENCOUNTER 2018-12-04 09:25 | Inpatient (IN) | payer OTHER, BC ==
--- NOTE | 2018-12-04 10:03 | PDOC ---
History of Present Illness - General Chief Complaint: Pain Stated Complaint: ABD PAIN Time Seen by Provider: 12/04/18 09:57 History Source: Patient Exam Limitations: No Limitations - History of Present Illness Initial Comments: 12/04/18 09:58 [id number] who was admitted 11/11/18-11/23/18 for nephrolithiasis w/superimposed pyelonephritis 2/2 to obstructing stone just finished PICC line course of vancomycin 3 days ago, also with h/o HTN, remote h/o CVA (20+ years previous w/ no residual deficits), pancreatic mass (s/p biopsy @ [facility], no known malignancy), who p/w exacerbated right flank and RLQ>LLQ abdominal pain which is sharp, 10/10 , otherwise non-radiating, constant and not exacerbated or alleviated by any action he takes. Has taken no medications for this today. He additionally notes hematuria increased this morning, ability to void only small amounts at a time, nausea, and headache. Denies f/c, vomiting, diarrhea, bloody/black stool Past History - Past Medical History Allergies/Adverse Reactions: Allergies Allergy/AdvReac Type Severity Reaction Status Date / Time No Known Allergies Allergy Verified 12/08/18 17:29 Home Medications: Ambulatory Orders Amlodipine Besylate [Norvasc -] 10 mg PO DAILY 11/09/18 Diclofenac Potassium 50 mg PO ASDIR 11/09/18 Fluticasone Furoate [Children's Flonase Sensimist] 5.9 ml NS ASDIR 11/09/18 Loratadine 10 mg PO ASDIR 11/09/18 Omeprazole 20 mg PO ASDIR 11/09/18 Oxybutynin Chloride [Ditropan -] 5 mg PO DAILY 11/09/18 Tamsulosin HCl [Flomax] 0.4 mg PO DAILY #7 cap.er.24h 11/09/18 Levofloxacin [Levaquin] 500 mg PO DAILY 7 Days #7 tablet 12/07/18 Oxycodone HCl/Acetaminophen [Percocet 5-325 mg Tablet] 1 tab PO Q4H PRN CVA: Yes COPD: No GI Disorders: Yes (renaql stones w stent) HTN: Yes - Immunization History Immunization Up to Date: Yes - Suicide/Smoking/Psychosocial Hx Smoking History: Unknown if ever smoked Have you smoked in the past 12 months: No Number of Cigarettes Smoked Daily: 10 'Breaking Loose' booklet given: 07/13/15 Hx Alcohol Use: No Drug/Substance Use Hx: No Review of Systems - Review of Systems Able to Perform ROS?: Yes Comments:: GEN: no fever, chills, malaise, generalized weakness, or weight change HEENT: no ear pain, sore throat, vision change, or eye pain CV: no chest pain, palpitations, lightheadedness, syncope, or edema RESP: no cough, wheezing, or SOB GI: abdominal pain, nausea, no vomiting, diarrhea, constipation, or white/black/ bloody stool : dysuria, hematuria, voiding small amounts, no incontinence, or discharge MSK: no neck/back pain, muscle weakness/pain, or joint swelling/pain NEURO: mild headache, no seizure, vertigo, numbness, tingling, or focal weakness PSYCH: no substance use, no behavior change SKIN: no jaundice, no rash ROS otherwise negative except as noted in HPI *Physical Exam - Vital Signs Last Vital Signs Temp Pulse Resp BP Pulse Ox 98.8 F 100 H 20 138/82 100 12/04/18 09:45 12/04/18 09:45 12/04/18 09:45 12/04/18 09:45 12/04/18 09:45 - Physical Exam Comments: 12/04/18 11:38 GENERAL: uncomfortable-appearing, A/Ox4, mild distress, answers questions appropriately HEENT: PERRLA, EOMI, moist mucous membranes NECK/BACK: no midline ttp, no spinal stepoff or deformity, no hematoma, full ROM , neck supple CARDIOVASCULAR: regular rate/rhythm, normal S1S2, no MGR, strong peripheral pulses, capillary refill <2 seconds, extremities wwp, no edema LUNGS/RESPIRATORY: no respiratory distress, CTAB GI/ABDOMEN: symmetric [id number], normoactive BS, soft, RLQ>LLQ ttp, no midline pulsatile masses : right inferior CVA tenderness EXTREMITIES: no muscle atrophy, no acute deformity SKIN: warm and dry, no pallor, no jaundice, no rash, no bruising, no skin breakdown, no cuts, no lesions NEUROLOGICAL: GCS 15, CN II-XII grossly intact, 5/5 strength proximally and distally, no facial droop Moderate Sedation - Procedure Monitoring Vital Signs: Procedure Monitoring Vital Signs Temperature 98.8 F 12/04/18 09:45 Pulse Rate 100 H 12/04/18 09:45 Respiratory Rate 20 12/04/18 09:45 Blood Pressure 138/82 12/04/18 09:45 O2 Sat by Pulse Oximetry (%) 100 12/04/18 09:45 Heart Score/ECG Review #1 Sinus rhythm, rate 87, normal axis and intervals, no ST-T changes ED Treatment Course - LABORATORY CBC & Chemistry Diagram: 12/07/18 07:00 12/07/18 07:00 Medical Decision Making - Medical Decision Making 12/04/18 11:40 Pt p/w severe flank pain. Initial Vital Signs Temp Pulse Resp BP Pulse Ox 98.8 F 100 H 20 138/82 100 12/04/18 09:45 12/04/18 09:45 12/04/18 09:45 12/04/18 09:45 12/04/18 09:45 Exam: As noted in Physical Exam section. DDX IBNLT: most likely normal course of ureteral stent placement on same side as pain, less likely continued renal colic, obstructive uropathy, UTI/ pyelonephritis, rental artery aneurysm or dissection (kayla w/ hematuria and no stone visualized on imaging), or any other more serious etiology i.e. AAA/AD, pancreatitis, gastritis, PUD, colitis, ruptured diverticulosis, diverticulitis wwo abscess or perforation, stump appendicitis, hernia, SBO, malignancy, splenic infarction, mesenteric ischemia, bowel perforation, testicular torsion, epididymitis, orchitis, urethritis, musculoskeletal, constipation, etc. W/U ordered: Labs as noted below, Spiral CT TX ordered: IVF, Ofirmev, Morphine POCUS bladder shows only ~40cc urine. Laboratory Tests 12/04/18 12/04/18 12:57 12:57 WBC 9.2 RBC 4.37 Hgb 13.0 Hct 37.6 MCV 86.0 MCH 29.6 MCHC 34.5 RDW 15.5 Plt Count 224 D MPV 8.3 Absolute Neuts (auto) 6.2 Neutrophils % 67.1 Lymphocytes % 18.4 Monocytes % 11.1 H Eosinophils % 2.6 Basophils % 0.8 Nucleated RBC % 0 Sodium 139 Potassium 4.2 Chloride 107 Carbon Dioxide 24 Anion Gap 8 BUN 19 H Creatinine 1.7 H Creat Clearance w eGFR 40.28 Random Glucose 89 Calcium 8.4 L Total Bilirubin 0.4 AST 15 ALT 16 Alkaline Phosphatase 77 Total Protein 6.9 Albumin 3.0 L Lipase 62 L Reassessment: Patient states much more comfortable after morphine. 12/04/18 14:28 Patient has Cr of 1.7 (up from last several measurements here) and diffuse colitis on CT. I have ordered ceftriaxone/flagyl IVPB. The Pts symptoms persist despite ED treatments. The Pt is unsafe for discharge at this time. They require further hospital observation, workup, and treatment. Page has been sent to Dr. Radha Wise for admission. Blank Decision to Admit order is placed per ED protocol. 12/04/18 15:[address] Radha Wise and in agreement patient to go to IP Med/Surg. Decision to Admit order corrected with Dr. Wise's name. *DC/Admit/Observation/Transfer Diagnosis at time of Disposition: Colitis, FRANCISCA (acute kidney injury), Dehydration - Discharge Dispostion Disposition: HOME Condition at time of disposition: Guarded Decision to Admit order: Yes - Prescriptions - Referrals - Patient Instructions - Post Discharge Activity
[2018-12-04] MEDS ORDERED: ACETAMINOPHEN 1000 MG/100 ML VIAL (NON FORMULARY) IVPB ONE (10:12)
[2018-12-04] MEDS ORDERED: ONDANSETRON 4 MG/2 ML VIAL IVPB ONE (10:13)
[2018-12-04] MEDS ORDERED: SODIUM CHLORIDE 500 ML IV STA (10:13)
[2018-12-04] MEDS ORDERED: morphine CARPU-JECT 4 MG/1 ML DISP.SYRIN IVPUSH ONE ×3 (10:15→17:30)
--- NOTE | 2018-12-04 10:31 | PDOC ---
Attending Attestation - Resident Resident Name: Mares,Rachel - ED Attending Attestation I have performed the following: I have examined & evaluated the patient, The case was reviewed & discussed with the resident, I agree w/resident's findings & plan - HPI HPI: 12/04/18 11:14 73 YOM with h/o recent admission 11/11/18-11/23/18 for nephrolithiasis w/ superimposed pyelonephritis 2/2 to obstructing stone just finished PICC line course of vancomycin 3 days ago, HTN, remote h/o CVA (20+ years previous w/no residual deficits), pancreatic mass (s/p biopsy @ [facility], no known malignancy), who p/w exacerbated right flank and RLQ>LLQ abdominal pain and decreased urination a /w suprapubic pressure, with small amounts of blood. Blood cultures at that time grew Staph lugdunesis s/p IV vancomycin via PICC, that was recently completed. - Physicial Exam PE: 12/04/18 11:14 NAD, well appearing, PERRL, EOMI, MMM, nl conjunctiva, anicteric; neck supple. lungs clear, +tachy, abdomen soft +right sided and groin tenderness, no rebound or guarding, mild CVAT. REDD x4, no focal neuro deficits. No peripheral edema. normal color for ethnicity, WWP. - Medical Decision Making 12/04/18 11:15 See HPI for details Vital signs reviewed, afebrile, +tachy. DDx. renal colic, ureterolithiasis, hydronephrosis, ureteral stent complication , stent obstruction, UTI, pyelonephritis, pancreatitis, acute colitis, intra abdominal infection/inflammation.. Prior notes reviewed, including admissions, discharges and consultations. laboratory results and imaging reviewed, basic labs and lytes wnl, notable for mild elevation in Cr to 1.7, higher than prior. lytes, LFTs and lipase normal UA_declined straight cath, low bladder volume likely from dehydration. check for infection. EKG normal sinus rhythm, no interval abnormalities, narrow QRS, ST and T wave segments and morphology normal. ED course: analgesia, fluids bedside renal sono with no hydronephrosis, large prostate and bladder volume of 40ml. clinically dehydrated, with minimal urine output, as see on US. given IVF support. CT michael given stent for ureterolithiasis, r/o superinfected stone vs worsening obstruction vs infection. urology cs with Dr Dany Ambriz - see as inpatient given recent ureteral stenting procedure that appears patent and functional. CT a/p with diffuse colitis, no hydro, ureteral stent in place on right. IV cef/flagyl for colitis, continued fluids and tx. no diarrhea, doubt C diff, no stooling abnormalities. dispo: admit for continued medical management, of acute colitis, IV abx. uro cs , pain control. 12/04/18 17:28 Procedures - Bedside Ultrasound Other: Renal Remarks: 12/04/18 11:16 POCUS renal exam performed, indication includes abdominal/flank pain. views obtained: bilateral kidneys in short and long axis, bladder. findings: no evidence of hydronephrosis. large prostate. bladder volume 40ml. Impression: low bladder volume, no hydronephrosis.
[2018-12-04] MEDS ORDERED: ONDANSETRON 4 MG/2 ML VIAL ONE (10:36)
[2018-12-04] MEDS ORDERED: ACETAMINOPHEN INJECTION 100 ML IVPB ONE (10:36)
[2018-12-04] MEDS ORDERED: morphine SULFATE 4 MG/ML VIAL ONE ×3 (10:36→17:46)
[2018-12-04] MEDS ORDERED: SODIUM CHLORIDE 0.9% 500 ML INFUS.BAG IV ONE (11:13)
[2018-12-04 13:17] LABS: BASO % 0.8 % (0-2.0); EOS % 2.6 % (0-4.5); HEMATOCRIT 37.6 % (35.4-49); LYMPH % 18.4 % (8-40); MCH 29.6 pg (25.7-33.7); MCHC 34.5 g/dl (32.0-35.9); MEAN PLT VOLUME 8.3 fl (7.5-11.1); MONO % 11.1 % (3.8-10.2); NEUT % 67.1 % (42.8-82.8); PLATELET COUNT 224 K/MM3 (134-434); RBC 4.37 M/mm3 (4.00-5.60); RDW 15.5 % (11.9-15.9); WHITE BLOOD COUNT 9.2 K/mm3 (4.0-10.0)
[2018-12-04 13:44] LABS: ALK PHOS 77 U/L (45-117); ANION GAP 8 MMOL/L (8-16); BILIRUBIN,TOTAL 0.4 mg/dL (0.2-1); BLOOD UREA NITROGEN 19 mg/dL (7-18); CALCIUM 8.4 mg/dL (8.5-10.1); CHLORIDE 107 mmol/L (98-107); CO2 24 mmol/L (21-32); CREATININE 1.7 mg/dL (0.55-1.3); GLUCOSE,RANDOM 89 mg/dL (74-106); LIPASE 62 U/L (73-393); POTASSIUM 4.2 mmol/L (3.5-5.1); SGOT/AST 15 U/L (15-37); SGPT/ALT 16 U/L (13-61); SODIUM 139 mmol/L (136-145); TOT PROT 6.9 g/dl (6.4-8.2)
[2018-12-04] MEDS ORDERED: CEFTRIAXONE 1,000 MG in DEXTROSE 5%-WATER - 50 ML IVPB ONE (14:24)
[2018-12-04] MEDS ORDERED: CEFTRIAXONE 1 GM/50 ML BAG ONE (15:00)
--- NOTE | 2018-12-04 17:30 | EKG ---
Test Reason : Blood Pressure : / mmHG Vent. Rate : 087 BPM Atrial Rate : 087 BPM P-R Int : 164 ms QRS Dur : 076 ms QT Int : 354 ms P-R-T Axes : 053 024 067 degrees QTc Int : 425 ms NORMAL SINUS RHYTHM NORMAL ECG WHEN COMPARED WITH ECG OF 11-NOV-2018 16:28, VENT. RATE HAS DECREASED BY 45 BPM Confirmed by MARITO TERRELL MD ([id number]) on 12/04/2018 5:30:39 PM Referred By: Confirmed By:MARITO TERRELL MD
[2018-12-04 17:32] LABS: URINE APPEARANCE CLOUDY; URINE BILIRUBIN NEGATIVE (<2.0 mg/dL); URINE COLOR DKYELLOW; URINE GLUCOSE (UA) NEGATIVE (NEGATIVE); URINE KETONE TRACE (NEGATIVE); URINE LEUK ESTERASE 2+ (NEGATIVE); URINE NITRITE NEGATIVE (NEGATIVE); URINE PROTEIN 2+ (NEGATIVE); URINE UROBILINOGEN NEGATIVE mg/dL (0.2-1.0)
[2018-12-04 17:57] LABS: EPI CELLS RARE /HPF (FEW); URINE BACTERIA RARE /hpf (NONE SEEN); URINE MUCUS RARE
[2018-12-04 21:39] VITALS: BMI 22.7
[2018-12-05] MEDS: KETOROLAC TROMETHAMINE 30 MG/1 ML VIAL IVPUSH SCH ×3 (02:51→17:10)
--- NOTE | 2018-12-05 08:30 | CONSULT ---
Consult - text type - Consultation Consultation Note: CC: abdominal pain hpi: Patient with historyof obstructing right ureteral stone s/p stent. Patient now presents with abdominal pain with diarrhea. Patient denies right flank pain, fever, chills, dysuria, or gross hematuria. PE vss; afeb abd-soft, nontender; no CVAT bilaterally genitalia-nl phallus and testes rectal-3+ prostate with asymmetry renal sono-no evidence of right hydro imp diarrhea abdominal pain s/p right stent for right renal stone plan supportive care will schedule right eswl as outpatient discussed with patient and x 20 minutes
[2018-12-05] MEDS ORDERED: AMPICILLIN NA/SULBACTAM NA 1.5 GM in SODIUM CHLORIDE 100 ML IVPB SCH (10:00)
[2018-12-05] MEDS: oxyCODONE HCL 5 MG TABLET PO PRN ×3 (10:35→21:13)
[2018-12-05] MEDS: D5-1/2NS+10 MEQ KCL - 10 MEQ/1,000 ML INFUS.BAG IV SCH ×2 (10:36→23:23)
--- NOTE | 2018-12-05 10:47 | HP ---
DATE OF ADMISSION: 12/04/2018 DATE OF DICTATION: 12/05/2018 HISTORY OF PRESENT ILLNESS: This is a 68-year-old male known to have bilateral kidney stones, recently had a stent placed in the right ureter, who came to the office 2 days ago with abdominal pain. Pain medications were given, no relief, so he came back to the emergency room with complaints of lower abdominal pain mostly on the right side. He has no appetite, not eating. In the ER, patient was noted to have dehydration, so, he got admitted with a diagnosis of dehydration, abdominal pain, kidney stones. Patient also diagnosed to have pancreatic mass with ductal dilatation. Biopsy in the past was negative. Known to Oncology Department. This morning, patient says his pain is a little better, but still no appetite, not eating. PHYSICAL EXAMINATION: Vital signs: BP 133/60, respirations 20, temperature 98, pulse 84. HEENT: Unremarkable. Neck: Supple. No JVD. Lungs: Clear. Heart: S1, S2 normal. No S3, S4. Abdomen: Has generalized guarding mostly on the right lower quadrant area. Rectal: Examination not done. Extremities: Legs no edema. LABORATORY REPORTS: WBC 9.2, hemoglobin 13, platelets 224. Chemistry: Sodium 139, potassium 4.2, chloride 107, BUN 19, creatinine 1.7, lipase 62. CT of the abdomen showed diffuse wall thickening of the colon with pericolic inflammation consistent with diffuse colitis, ureteric stones on the right side with a stent. IMPRESSION: Colitis, kidney stones, dehydration. PLAN: IV fluids, IV antibiotics, oncologic consult Dr. Raines. Will follow. Cynthia [id number]
[2018-12-05] MEDS: AMPICILLIN NA/SULBACTAM NA 1.5 GM in SODIUM CHLORIDE 100 ML IVPB SCH ×2 (12:19→17:10)
[2018-12-05] MEDS: MELATONIN 5 MG TABLETS PO PRN (23:38)
[2018-12-06] MEDS: KETOROLAC TROMETHAMINE 30 MG/1 ML VIAL IVPUSH SCH ×3 (01:36→17:21)
[2018-12-06] MEDS: AMPICILLIN NA/SULBACTAM NA 1.5 GM in SODIUM CHLORIDE 100 ML IVPB SCH (01:37)
[2018-12-06] MEDS: oxyCODONE HCL 5 MG TABLET PO PRN ×6 (01:37→23:57)
--- NOTE | 2018-12-06 09:27 | PN ---
Progress Note, Physician Chief Complaint: Rt lower abdominal pain is better History of Present Illness: Diagnosed to have kidney stones ,has a stent Rt ureter On IV antibiotics,will discuss with Dr Dany Thornton regarding lethotrepsy as out patient - Current Medication List Current Medications: Active Medications Potassium Chloride/Dextrose/Sod Cl (D5-1/2ns+10 Meq Kcl -) 10 meq in 1,000 mls @ 83 mls/hr IV ASDIR LOLIS Last Admin: 12/05/18 23:23 Dose: 83 mls/hr Ampicillin Sodium/Sulbactam (Sodium 1.5 gm/ Sodium Chloride) 100 mls @ 200 mls/ hr IVPB Q8H-IV LOLIS Ampicillin Sodium/Sulbactam (Sodium 1.5 gm/ Sodium Chloride) 100 mls @ 200 mls/ hr IVPB Q8H-IV LOLIS Stop: 12/06/18 10:59 Last Admin: 12/06/18 01:37 Dose: 200 mls/hr Ketorolac Tromethamine (Toradol Injection -) 30 mg IVPUSH Q8H-IV LOLIS Stop: 12/10/18 02:29 Last Admin: 12/06/18 01:36 Dose: Not Given Melatonin (Melatonin) 5 mg PO HS PRN PRN Reason: INSOMNIA Last Admin: 12/05/18 23:38 Dose: 5 mg Oxycodone HCl (Roxicodone -) 5 mg PO Q4H PRN PRN Reason: PAIN LEVEL 4 - 6 Last Admin: 12/06/18 05:45 Dose: 5 mg - Objective Vital Signs: Vital Signs Temperature 98.9 F 12/06/18 05:52 Pulse Rate 79 12/06/18 05:52 Respiratory Rate 18 12/06/18 05:52 Blood Pressure 127/67 12/06/18 05:52 O2 Sat by Pulse Oximetry (%) 98 12/04/18 18:39 Constitutional: Yes: No Distress Eyes: Yes: WNL HENT: Yes: WNL Neck: Yes: WNL Cardiovascular: Yes: WNL Respiratory: Yes: WNL Gastrointestinal: Yes: WNL ...Rectal Exam: Yes: Deferred Genitourinary: Yes: CVA Tenderness - Right Musculoskeletal: Yes: WNL Peripheral Pulses WNL: Yes Neurological: Yes: Alert Labs: CBC, BMP 12/04/18 12:57 12/04/18 12:57 Assessment/Plan WTASON Arango ,donna Angelesuin
[2018-12-06] MEDS: D5-1/2NS+10 MEQ KCL - 10 MEQ/1,000 ML INFUS.BAG IV SCH (14:33)
--- NOTE | 2018-12-06 18:48 | PN ---
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 PMH: HBP, stroke, kidney stones, urosepsis, kidney cysts Past surgery - appendectomy; spinal surgery x2, prostate surgery,Stenting of kidney ROS no headaches, diplopia, epistaxis, dysphagia, chest pain, SOB, abdominal and suprapubic pains, dysuria, back pains, hiccups Current Medications Generic Name Dose Route Start Last Admin Trade Name Freq PRN Reason Stop Dose Admin Potassium Chloride/Dextrose/Sod Cl 10 meq in 1,000 mls @ 83 mls/hr 12/05/18 09 :30 12/06/18 14:33 D5-1/2ns+10 Meq Kcl - IV 83 mls/hr ASDIR LOLIS Administration Levofloxacin 500 mg in 100 mls @ 100 mls/hr 12/06/18 10:00 12/06/18 09:56 Levaquin 500 Mg Premixed Ivpb - IVPB 100 mls/hr DAILY LOLIS Administration Ketorolac Tromethamine 30 mg 12/05/18 02:30 12/06/18 17:21 Toradol Injection - IVPUSH 12/10/18 02:29 Not Given Q8H-IV LOLIS Melatonin 5 mg 12/05/18 23:29 12/05/18 23:38 Melatonin PO 5 mg HS PRN Administration INSOMNIA Oxycodone HCl 5 mg 12/05/18 09:32 12/06/18 14:25 Roxicodone - PO 5 mg Q4H PRN Administration PAIN LEVEL 4 - 6 Tamsulosin HCl 0.8 mg 12/07/18 08:30 Flomax - PO DAILY@0830 LOLIS Last Vital Signs Temp Pulse Resp BP Pulse Ox 99.2 F 77 18 125/70 98 12/06/18 17:34 12/06/18 17:34 12/06/18 17:34 12/06/18 17:34 12/04/18 18:39 HEENT: JETHRO, EOM Intact Oropharynx: No thrush, No mucositis Neck: Supple Nodes: Without adenopathy Cor: RSR, No murmurs, No gallops Lungs: diminished breath sounds Abd: Soft, Normal bowel sounds, No organomegaly Ext:No significant edema Skin: No rashes, Integument intact testes descended, circumcised CBC, BMP 12/04/18 12:57 12/04/18 12:57 Impression: Urosepsis/UTI KIdney stones/ Kidney stent CKD Hiccups 4.4 cm 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 - reportedly benign Need details and records If not , will need EUS for evaluation and diagnosis of pancreatic mass. will give trial of thorazine for hiccups
[2018-12-06] MEDS: MELATONIN 5 MG TABLETS PO PRN (21:40)
[2018-12-07] MEDS: KETOROLAC TROMETHAMINE 30 MG/1 ML VIAL IVPUSH SCH ×2 (01:14→11:03)
[2018-12-07] MEDS: oxyCODONE HCL 5 MG TABLET PO PRN ×2 (05:25→09:24)
[2018-12-07 07:18] LABS: HEMATOCRIT 33.7 % (35.4-49); HEMOGLOBIN 11.6 GM/dL (11.7-16.9); MCH 28.8 pg (25.7-33.7); MCHC 34.3 g/dl (32.0-35.9); MEAN CELL VOLUME 84.2 fl (80-96); PLATELET COUNT 202 K/MM3 (134-434); RBC 4.01 M/mm3 (4.00-5.60); RDW 15.5 % (11.9-15.9); WHITE BLOOD COUNT 8.7 K/mm3 (4.0-10.0)
[2018-12-07] MEDS ORDERED: TAMSULOSIN HCL 0.4 MG CAP PO SCH (08:30)
[2018-12-07 08:32] LABS: ALBUMIN 2.7 g/dl (3.4-5.0); ALK PHOS 66 U/L (45-117); ANION GAP 7 MMOL/L (8-16); BILIRUBIN,TOTAL 0.4 mg/dL (0.2-1); BLOOD UREA NITROGEN 6 mg/dL (7-18); CALCIUM 8.1 mg/dL (8.5-10.1); CHLORIDE 106 mmol/L (98-107); CO2 25 mmol/L (21-32); GLUCOSE,RANDOM 102 mg/dL (74-106); SGOT/AST 12 U/L (15-37); SGPT/ALT 12 U/L (13-61); SODIUM 138 mmol/L (136-145); TOT PROT 6.2 g/dl (6.4-8.2)
--- NOTE | 2018-12-07 09:24 | DS ---
Physical Examination Vital Signs: Vital Signs Temperature 98.6 F 12/07/18 05:00 Pulse Rate 75 12/07/18 05:00 Respiratory Rate 18 12/07/18 05:00 Blood Pressure 130/67 12/07/18 05:00 O2 Sat by Pulse Oximetry (%) 98 12/04/18 18:39 Findings/Remarks: Rt lower quadrent pain better . Dr Dove oncology consult appreciated Will discuss with Dr Drew regarding lethotreptsy Constitutional: Yes: No Distress Eyes: Yes: WNL HENT: Yes: WNL Neck: Yes: WNL Cardiovascular: Yes: WNL Respiratory: Yes: WNL Gastrointestinal: Yes: WNL ...Rectal Exam: Yes: Deferred Renal/: Yes: WNL Breast(s): Yes: WNL Musculoskeletal: Yes: WNL Edema: No Peripheral Pulses WNL: Yes Neurological: Yes: WNL, Alert ...Motor Strength: WNL Psychiatric: Yes: WNL Labs: CBC, BMP 12/07/18 07:00 12/07/18 07:00 Discharge Summary Reason For Visit: ACUTE KIDNY INJURY/COLITIS/CALCULUS OF KIDNEY/ Current Active Problems FRANCISCA (acute kidney injury) (Acute) Colitis (Acute) Dehydration (Acute) Condition: Guarded - Instructions Referrals: Radha Wise MD [Primary Care Provider] - - Home Medications Comprehensive Discharge Medication List: Ambulatory Orders Amlodipine Besylate [Norvasc -] 10 mg PO DAILY 11/09/18 Diclofenac Potassium 50 mg PO ASDIR 11/09/18 Fluticasone Furoate [Children's Flonase Sensimist] 5.9 ml NS ASDIR 11/09/18 Loratadine 10 mg PO ASDIR 11/09/18 Omeprazole 20 mg PO ASDIR 11/09/18 Oxybutynin Chloride [Ditropan -] 5 mg PO DAILY 11/09/18 Tamsulosin HCl [Flomax] 0.4 mg PO DAILY #7 cap.er.24h 11/09/18 Vancomycin/0.9 % Sod Chloride [Vanco 1 Gram/250 ml-0.9% NaCl] 1 gm IV BID 9 Days #18 plast..bag 11/23/18
[2018-12-07 11:23] VITALS: BP 116/81; PULSE 96; TEMP 98.4
== END 2018-12-07 12:45 | disposition home or self-care (01) | DRG 683 ==
LOC: JER 09:25 → JERBED 13:06 → J7W 20:32
PROVIDERS: ADMIT Internal Medicine; ATTEND Internal Medicine
DX: N17.9 Acute kidney failure, unspecified (principal); N20.1 Calculus of ureter; K52.9 Noninfective gastroenteritis and colitis, unspecified; E86.0 Dehydration; I10 Essential (primary) hypertension
CPT/HCPCS: 36415; 74176; 80053; 81003; 81015; 83690; 85025; 85027; 86301; 93005; 93010; 99282-25; J0131

== ENCOUNTER 2018-12-11 11:02 | Day surgery (SDC) | payer OTHER, BC ==
[2018-12-08 17:38] VITALS: BMI 22.7
[2018-12-11 12:43] VITALS: TEMP 98
--- NOTE | 2018-12-11 14:10 | OP ---
Operative Note - Note: Operative Date: 12/11/18 Pre-Operative Diagnosis: Right Renal stone Operation: Right ESWL Findings: 15 mm mid pole Right renal stone Post-Operative Diagnosis: Same as Pre-op Surgeon: Matty Deshpande Anesthesia: Fractional Estimated Blood Loss (mls): 0 Operative Report Dictated: Yes
[2018-12-11 15:34] VITALS: BP 128/80; PULSE 78
--- NOTE | 2018-12-12 09:27 | OP ---
DATE OF OPERATION: 12/11/2018 PREOPERATIVE DIAGNOSIS: Right renal stone. POSTOPERATIVE DIAGNOSIS: Right renal stone. PROCEDURE: Right extracorporeal shockwave lithotripsy. ATTENDING: Erika Snow MD ANESTHESIA: General. OPERATION: The patient was brought in the operating room, placed in the supine position on the operating room table. Ultrasonography and fluoroscopy were performed. A 15-mm right mid pole stone was identified. The patient had a stent placed previously. Anesthesia and preoperative antibiotics were given to the patient. Shockwave lithotripsy was then performed. The patient tolerated the procedure very well. There were no complications noted. The disposition of the patient was to the recovery room. ERIKA SNOW M.D. [id number]
== END 2018-12-11 16:01 | disposition home or self-care (01) ==
LOC: JASU-SURG 11:02
PROVIDERS: ATTEND Urology
PROC: 0TF3XZZ Fragmentation in Right Kidney Pelvis, External Approach (ICD-10-PCS; principal; 2018-12-11 13:15)
DX: N20.0 Calculus of kidney (principal)

== ENCOUNTER 2019-01-22 06:36 | Day surgery (SDC) | payer OTHER, BC ==
[2019-01-19 15:51] VITALS: BMI 23.7
[2019-01-22] MEDS ORDERED: ONDANSETRON 4 MG/2 ML VIAL IVPUSH PRN (07:46)
[2019-01-22] MEDS ORDERED: oxyCODONE HCL 5 MG TABLET PO PRN ×2 (07:46)
[2019-01-22] MEDS ORDERED: MIDAZOLAM HCL 2 MG/2 ML SINGLE DOSE VIAL ONE ×2 (08:25→09:02)
[2019-01-22 09:50] VITALS: PULSE 67
--- NOTE | 2019-01-22 09:52 | OP ---
Operative Note - Note: Operative Date: 01/22/19 Pre-Operative Diagnosis: Left renal stone Operation: Left ESWL Findings: 6 mm mid pole left renal stone Post-Operative Diagnosis: Same as Pre-op Surgeon: Matty Deshpande Anesthesia: Fractional Estimated Blood Loss (mls): 0 Operative Report Dictated: Yes
[2019-01-22] MEDS ORDERED: ACETAMINOPHEN 1000 MG/100 ML VIAL (NON FORMULARY) IVPB ONE (10:14)
[2019-01-22] MEDS ORDERED: ACETAMINOPHEN 325 MG TABLET (FP) ONE (10:14)
[2019-01-22] MEDS ORDERED: ACETAMINOPHEN 325 MG TABLET (FP) PO ONE (10:30)
[2019-01-22 10:40] VITALS: BP 138/77; TEMP 98
--- NOTE | 2019-02-28 10:01 | OP ---
DATE OF OPERATION: 01/22/2019 PREOPERATIVE DIAGNOSIS: Left renal stone. POSTOPERATIVE DIAGNOSIS: Left renal stone. PROCEDURE: Left extracorporeal shock wave lithotripsy. ATTENDING SURGEON: Erika Deshpande MD ANESTHESIA: Fractional. OPERATION: As follows, the patient was brought into the operating room and placed in a supine position on the operating room table. Ultrasonography and fluoroscopy were performed. A 6-mm left mid pole stone was identified. Patient was then given anesthesia and preoperative antibiotics. Shock wave lithotripsy was then performed. Excellent fragmentation of the 6-mm left mid pole stone was seen. No complications were noted. The patient tolerated the procedure very well. DISPOSITION: The disposition of the patient was to the recovery room. ERIKA SNOW M.D. [id number]
== END 2019-01-22 10:50 | disposition home or self-care (01) ==
LOC: JASU-SURG 06:36
PROVIDERS: ATTEND Urology
PROC: 0TF4XZZ Fragmentation in Left Kidney Pelvis, External Approach (ICD-10-PCS; principal; 2019-01-22 08:45)
DX: N20.0 Calculus of kidney (principal)